=== PATIENT | male | born 1935 | race Caucasian/White ===

== ENCOUNTER 2017-07-20 10:18 | Outpatient (CLI) | payer BC, SELFPAY ==
[2017-07-20] VITALS (8 sets, daily range): BP systolic 130–160; BP diastolic 37–99; PULSE 55–64; RESP 8–16; TEMP 36.2; O2SAT 96–100
--- NOTE | 2017-07-20 10:19 | DI.RAD.S_ITS ---
PROCEDURE: PAIN L INTERLAMINAR/CAUDAL INJ INDICATIONS: 82 year-old male with spinal stenosis and bilateral lower extremity symptoms. FINDINGS: Fluoroscopic spot filming was performed to verify placement of spinal needles at the posterior L4-L5 level(s), as labeled on the films. Appropriate location(s) of the needle tip(s) was confirmed by injection of iodinated contrast. IMPRESSION: Fluoroscopic guidance for L4-L5 epidural steroid injection. Dictated by: Arias Bloom M.D. on 07/20/2017 at 15:09 Approved by: Arias Bloom M.D. on 07/20/2017 at 15:09
--- NOTE | 2017-07-20 11:27 | P.PCN_ITS ---
Procedures Date/Time Date of procedure: 07/20/17 Time of procedure: 12:05 General Procedure description: PROVIDER: Jason Lange DO Operative Note PREOP DIAGNOSIS 1. HNP WITH RADICULAR FEATURES, 2. MULTILEVEL CENTRAL STENOSIS, POST OP DIAGNOSIS 1. HNP WITH RADICULAR FEATURES, 2. MULTILEVEL CENTRAL STENOSIS PROCEDURES 1. FLUORSCOPICALLY GUIDED CONTRAST CONTROLLED INTERLAMINAR EPIDURAL STEROID INJECTION -L4/5 PHYSICIAN: Jason Lange DO INDICATIONs: Joesph is referred by Dr. Lockett for treatment of Bilateral Foraminal Stenosis R> L LE symptoms. FINDINGS Multilevel Central Spinal Stenosis with Nerve Root Compression DESCRIPTION OF PROCEDURE Fluoroscopically guided, contrast-controlled L4/5 translaminar epidural steroid injection. Following denial of allergy and review of potential side effects and complications, including, but not necessarily limited to, infection, allergic reaction, local tissue breakdown, temporary as well as permanent nerve injury, paralysis, stroke and possible , the patient indicated that the patient understood and agreed to proceed. An informed consent document was signed by the patient, witnessed by a nurse, and placed in the patient's chart. Additionally, other treatment options including modalities, medications, and physical therapy were reviewed with the patient. Per the patient request, IV conscious sedation was administered via 3mg of Versed to patient comfort. The patient's vital signs were monitored throughout the procedure by both the nurse and the physician without significant fluctuation. The patient remained conversant throughout the procedure. In the prone position, following sterile prep and drape of the lumbar region, the L4/5 translaminar space was identified fluoroscopically. The skin was anesthetized via a 25-gauge, 1.5-inch needle with 1% lidocaine solution. At this point, a 22-gauge short bevel spinal needle was atraumatically introduced and advanced under fluoroscopic guidance into the region of the L4/5 translaminar space. Depth was confirmed on lateral view. Radiological data, including multiple fluoroscopic views of the lumbar spine, reveal a spinal needle at the L4/5 translaminar space. Lateral views then show placement of the needle in the epidural space. Subsequent views show contrast material flowing superiorly and inferiorly in the epidural space. No vascular or intrathecal uptake is observed. At this point, using loss of resistance technique with saline and air, the epidural space was entered. This was confirmed following negative aspiration with injection of approximately 1.5 cc of Isovue 200, showing excellent epidural flow without vascular or intrathecal uptake. At this point, 1 cc of 1 % lidocaine solution combined with 4c or 1 mg of dexamethasone and 18 betamethasone was injected without incident. The patient was then transferred to the recovery area where they were observed for an appropriate period of time after the injection. The patient reported a VAS score of 6 prior to the procedure and a post-procedure VAS of 0. Total Fluoroscopy Time: 11.8 seconds Total Conscious Sedation Time: 24min POST OP INSTRUCTIONS The patient was provided a Pain Log to continue to record their response to the target-specific procedure prior to follow-up visit with their referring physician. Additionally, specific post-injection care instructions and a contact number to our office were provided if concerns arise regarding possible complications associated with the procedure are suspected. Jason Lange DO Complications: none
[2017-07-20] MEDS: MIDAZOLAM 5 MG/5 ML VIAL IV (11:40)
[2017-07-20] MEDS: IOPAMIDOL 15 ML VIAL 3 ML INJ (11:40)
[2017-07-20] MEDS: BETAMETHASONE 30 MG/5 ML MDV 6 MG INJ (11:40)
[2017-07-20] MEDS: BETAMETHASONE 30 MG/5 ML MDV 12 MG INJ (11:40)
[2017-07-20] MEDS: BUPIVACAINE 0.25% (PF) 30 ML VIAL INJ (11:40)
== END 2017-07-20 12:44 ==
LOC: RAD 10:18
PROVIDERS: Visit Provider Physical Medicine & Rehabilitation
DX: M48.061 Spinal stenosis, lumbar region without neurogenic claudication (principal); M51.16 Intervertebral disc disorders with radiculopathy, lumbar region
CPT/HCPCS: 62323; 99152; J0702; J2250

== ENCOUNTER → 2017-09-26 08:25 | Outpatient (CLI) | payer BC, SELFPAY ==
--- NOTE | 2017-09-26 08:26 | DI.RAD.S_ITS ---
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 COMPARISON: None. FINDINGS: Bones: Right knee arthroplasty present with hardware in expected position. No periprosthetic fracture. No evidence of loosening/infection. Soft tissues: Small joint effusion. No suspicious soft tissue calcifications. IMPRESSION: 1. Expected position of right knee arthroplasty. Dictated by: Pepe Sandy [facility] Interpreted: Jimi Briceno MD on 09/26/2017 at 9:39 Approved by: Jimi Briceno M.D. on 09/26/2017 at 13:21
== END ==
PROVIDERS: PCP Internal Medicine; Visit Provider Physical Medicine & Rehabilitation
DX: G58.8 Other specified mononeuropathies (principal); Z96.651 Presence of right artificial knee joint
CPT/HCPCS: 73562

== ENCOUNTER 2018-01-24 08:07 | Outpatient (CLI) | payer BC, SELFPAY ==
--- NOTE | 2018-01-24 08:08 | DI.RAD.S_ITS ---
PROCEDURE: PAIN PERIPHERAL NRV BLK OTHER INDICATIONS: ARTIFICIAL KNEE PAIN FINDINGS: Fluoroscopic spot filming was performed to verify placement of spinal needles for genicular nerve block, as labeled on the films. Appropriate location(s) of the needle tip(s) was confirmed by injection of iodinated contrast. Dictated by: Lenin Hines M.D. on 01/24/2018 at 16:31 Approved by: Lenin Hines M.D. on 01/24/2018 at 16:32
[2018-01-24 08:28] VITALS: BP 118/73; PULSE 65; RESP 18; O2SAT 96
[2018-01-24 09:10] VITALS: BP 119/80; PULSE 66; RESP 16; O2SAT 95
[2018-01-24 09:15] VITALS: BP 128/76; BP 132/95; PULSE 62; PULSE 64; RESP 16; O2SAT 99
[2018-01-24] MEDS: MIDAZOLAM 5 MG/5 ML VIAL IV (09:15)
[2018-01-24 09:20] VITALS: BP 103/64; PULSE 68; RESP 16; O2SAT 99
[2018-01-24 09:40] VITALS: BP 112/89; PULSE 67; RESP 16; O2SAT 95
--- NOTE | 2018-01-24 09:41 | P.PCN_ITS ---
Procedures Date/Time Date of procedure: 01/24/18 Time of procedure: 09:40 General Procedure description: POST OP DIAGNOSIS 1. Chronic knee pain PROCEDURES 1. Geniculate nerve blocks including superior lateral and medial as well as inferior medial nerve blocks PHYSICIAN: Jason Lange, INDICATIONS Joesph is referred by Dr. Lockett for treatment of chronic knee pain. DESCRIPTION OF PROCEDURE Fluoroscopically guided, contrast-controlled superior lateral, superior medial and inferior medial geniculate blocks with 2cc of 0.5% Marcaine. Following denial of allergy and review of potential side effects and complications, including, but not necessarily limited to, infection, allergic reaction, local tissue breakdown, nerve injury, paralysis, stroke and possible , the patient indicated that the patient understood and agreed to proceed. An informed consent document was signed by the patient, witnessed by a nurse, and placed in the patient's chart. After review of previous anaesthesic history and IV conscious sedation the patient was deemed safe to proceed with todays procedure with IV conscious sedation as ASA class II designation. Safety time-out was performed to confirm patient ID, procedure to be performed and site of procedure. IV sedation was accomplished with a combination of 3mg of Versed was administered by the RN after DO order, titrated to patient comfort during the course of the procedure while the patient remained responsive to all verbal commands A time-out was taken to identify the correct patient, procedure and side prior to starting the procedure. With the patient lying in the supine position, the patient was prepped and draped in usual sterile fashion using Betadine scrub and a fenestrated drape. Local anesthetic was given by raising a skin wheal and going down to the hub of a 25 gauge 1/2 inch needle. In an AP fluoroscopic view , a 20 gauge needle with was introduced through the anesthetic skin and down to the junction of the femoral diaphysis and the medial femoral condyle, then another needle to the femoral diaphysis on the lateral femoral condyle and the 3rd medial to the tibial diaphysis and the medial tibial condyle. Place of the of all 3 needles was confirmed with lateral fluoroscopic view. After negative aspirate to make sure there was no intravascular placement, trace contrast was infiltrated to confirm neurogram as well as lack of vascular uptake. After placement, 2 mL of 0.5% Marcaine was injected slowly and each of the 3 sites without incident. The needle was withdrawn and sites cleaned and dressed. The patient tolerated the procedure well without signs or symptoms of complications. The patient tolerated the procedure well without signs or symptoms of complications prior to transfer to the recovery area continued monitoring without incident. Post-procedure, the patient was monitored initiating provocative activities to measure the amount of relief from her chronic knee pain. The patient reported a VAS of 7 prior to the procedure and a post-procedure VAS of 1. Total Fluoroscopy Time: 19.0 seconds Total Conscious Sedation Time: 24min POST OP INSTRUCTIONS The patient was provided with a Pain Log to complete over the next several hours and subsequent days prior to the patient's follow up with the ordering physician. If the patient has auto bench mechanic relief to the solution applied, then they may be a candidate for geniculate nerve radiofrequency ablation. The patient is aware, was provided, once again, with a Pain Log and will follow up with the referring physician for review and clinical correlation Complications: none
[2018-01-24 09:47] VITALS: BP 118/76; PULSE 88; RESP 16; O2SAT 98
[2018-01-24] MEDS: IOPAMIDOL 15 ML VIAL 3 ML INJ (09:48)
[2018-01-24] MEDS: LIDOCAINE 1% 20 ML INJ 10 ML INJ (09:48)
[2018-01-24] MEDS: DEXAMETHASONE 10 MG/ML VIAL 20 MG INJ (09:48)
[2018-01-24] MEDS: BUPIVACAINE 0.5% (PF) VIAL 2 ML INJ (09:49)
--- NOTE | 2018-01-24 12:27 | PC.NURSE ---
procedure finished at 09, pt assisted off the table and into wheelchair with one person stand by assist. pt tolerated procedure well. Taken to pre procedure room via W/C where care was resumed by Keiry SHEPHERD.
--- NOTE | 2018-01-25 16:38 | PC.NURSE ---
Follow up call made and pt reports most of his pain is gone, he's been walking around a lot but he's happy with the results. pt also had some insomnia but took melatonin that helped.
== END 2018-01-24 10:00 | disposition home or self-care (01) ==
LOC: RAD 08:08
PROVIDERS: PCP Internal Medicine; Visit Provider Physical Medicine & Rehabilitation
DX: M25.561 Pain in right knee (principal); B02.21 Postherpetic geniculate ganglionitis; G89.29 Other chronic pain; Z96.651 Presence of right artificial knee joint
CPT/HCPCS: 64450; 99152; J1100; J2250

== ENCOUNTER → 2018-01-28 08:01 | Outpatient (CLI) | payer BC, SELFPAY ==
[2018-01-28 09:46] LABS: Add Manual Diff / Slide Review NO; Basophils Percent Auto 0.9 % (0-2); Eosinophils Percent Auto 5.5 % (2-4); Hematocrit 37.7 % (41-53); Hemoglobin 12.4 g/dL (13.5-17.5); Lymphocytes Percent Auto 29.6 % (25-40); Mean Corpuscular HGB Conc 32.9 % (30-36); Mean Corpuscular Hemoglobin 30.9 PG (26-34); Mean Corpuscular Volume 93.7 fL (80-100); Monocytes Percent Auto 9.6 % (3-14); Neutrophils Absolute Auto 2700 /uL (1500-7000); Neutrophils Percent Auto 54.4 % (50-75); Platelet Count 243 X10^3/uL (150-400); Red Blood Cell Count 4.02 X10^6/uL (4.5-5.9); White Blood Cell Count 4.9 X10^3/uL (4.5-11.0)
[2018-01-28 09:58] LABS: Alanine Aminotransferase 29 IU/L (21-72); Albumin Globulin Ratio 1.5 (1.0-2.8); Alkaline Phosphatase 55 U/L (38-126); Aspartate Aminotransferase 22 IU/L (17-59); BUN Creatinine Ratio 25.6 (6-22); Bilirubin Total 0.5 mg/dL (0.2-1.3); Blood Urea Nitrogen 23 mg/dL (9-20); Calcium 9.5 mg/dL (8.4-10.2); Carbon Dioxide 28 mmol/L (22-32); Chloride 104 mmol/L (98-107); Cholesterol 196 mg/dL (140-199); Estimated Glomerular Filt Rate > 60.0 mL/min (>60); Globulin 2.7 g/dL (1.7-4.1); Glucose 91 mg/dL (80-110); HDL Cholesterol 77 mg/dL (40-60); HEMOLYSIS < 15 (0-50); LDL Cholesterol Calculated 95 mg/dL (<100); Potassium 4.2 mmol/L (3.4-5.1); Sodium 141 mmol/L (137-145); Total Protein 6.7 g/dL (6.3-8.2); Triglycerides 121 mg/dL (35-150)
[2018-01-28 10:28] LABS: Thyroid Stimulating Hormone 1.22 uIU/mL (0.47-4.68)
== END ==
PROVIDERS: PCP Internal Medicine; Visit Provider Internal Medicine
DX: D64.9 Anemia, unspecified (principal); C67.9 Malignant neoplasm of bladder, unspecified; N40.0 Benign prostatic hyperplasia without lower urinary tract symptoms; G62.9 Polyneuropathy, unspecified; I10 Essential (primary) hypertension
CPT/HCPCS: 36415; 80053; 80061; 84443; 85025

== ENCOUNTER → 2018-02-09 15:39 | Outpatient (CLI) | payer BC, SELFPAY ==
--- NOTE | 2018-02-09 15:41 | DI.RAD.S_ITS ---
PROCEDURE: XR KNEE LT 3V INDICATIONS: left knee pain TECHNIQUE: 3 views of the knee were acquired. COMPARISON: [facility], CR, XR KNEE RT 3V, 09/26/2017, 8:14. FINDINGS: Bones: No fractures or dislocations but there is moderately severe to severe medial compartment degenerative knee joint osteoarthritis with near [id number]-bn-wigh articulation. At the patellofemoral joint there is a moderate degree of medial facet patellofemoral joint osteoarthritis.. No suspicious bony lesions. Soft tissues: No joint effusion. No suspicious soft tissue calcifications. IMPRESSION: Moderately severe to severe medial compartment knee joint osteoarthritis, without joint effusion or intra-articular loose body found. Dictated by: Jimi Briceno M.D. on 02/09/2018 at 17:21 Approved by: Jimi Briceno M.D. on 02/09/2018 at 17:22
== END ==
PROVIDERS: PCP Internal Medicine; Visit Provider Physical Medicine & Rehabilitation
DX: M25.562 Pain in left knee (principal); M17.12 Unilateral primary osteoarthritis, left knee
CPT/HCPCS: 73562

== ENCOUNTER 2018-08-31 14:04 | Outpatient (CLI) | payer BC, SELFPAY ==
--- NOTE | 2018-08-31 14:05 | DI.RAD.S_ITS ---
PROCEDURE: PAIN L/S TRANSFORAMINAL INJECT INDICATIONS: SPINAL STENOSIS FINDINGS: Fluoroscopic spot filming was performed to verify placement of spinal needles at the L4-L5 level(s), as labeled on the films. Appropriate location(s) of the needle tip(s) was confirmed by injection of iodinated contrast. IMPRESSION: Fluoroscopy for pain management. Dictated by: Washington Cabral M.D. on 08/31/2018 at 17:38 Approved by: Washington Cabral M.D. on 08/31/2018 at 17:38
[2018-08-31 14:16] VITALS: BP 130/75; PULSE 83; RESP 16; TEMP 36.7; O2SAT 96
[2018-08-31 15:13] VITALS: BP 127/77; PULSE 81; RESP 16; O2SAT 100
[2018-08-31] MEDS: fentaNYL 100 MCG/2 ML INJ 50 MCG IV (15:15)
[2018-08-31] MEDS: BUPIVACAINE 0.25% (PF) VIAL 2 ML INJ (15:18)
[2018-08-31] MEDS: IOPAMIDOL 15 ML VIAL 3 ML INJ (15:18)
[2018-08-31] MEDS: BETAMETHASONE 30 MG/5 ML MDV 12 MG INJ (15:19)
[2018-08-31] MEDS: MIDAZOLAM 5 MG/5 ML VIAL IV (15:19)
[2018-08-31 15:20] VITALS: BP 124/86; PULSE 55; RESP 16; O2SAT 96
--- NOTE | 2018-08-31 15:23 | CM.MNRNOTE ---
Pt tolerated procedure well. Right leg a little numb but able to get off table with 2 person minimal assist. Transferred pt via wheelchair to pre procedure room for continued monitoring with Keiry SHEPHERD.
[2018-08-31 15:34] VITALS: BP 129/63; PULSE 59; RESP 16; O2SAT 97
--- NOTE | 2018-08-31 15:34 | P.PCN_ITS ---
Procedures Date/Time Date of procedure: 08/31/18 Time of procedure: 15:33 General Procedure description: PREOP DIAGNOSIS 1. FORMAINAL STENOSIS WITH LE SYMPTOMS POST OP DIAGNOSIS 1. FORMAINAL STENOSIS WITH LE SYMPTOMS PROCEDURES 1. FLUOROSCOPICALLY GUIDED CONTRAST CONTROLLED TRANSFORAMINAL EPIDURAL STEROID INJECTION - RIGHT L4/5 TFESI PHYSICIAN: Jason Lange DO INDICATIONS: Joesph is referred by Dr. Sánchez for treatment of Foraminal Stenosis with Right LE Symptoms FINDINGS Foraminal Nerve Root Compression secondary to disc disease and facet hypertrophy DESCRIPTION OF PROCEDURE: Following review of allergy and review of potential side effects and complications, including, but not necessarily limited to, infection, allergic reaction, local tissue breakdown, stroke, temporary or permanent nerve injury, paralysis, and possible , the patient indicated that the patient understood and agreed to proceed. An informed consent document was signed by the patient, witnessed by a nurse, and placed in the patient's chart. Additionally, other treatment options including medications, modalities, and physical therapy were reviewed with the patient. After review of previous anaesthesic history and IV conscious sedation the patient was deemed safe to proceed with todays procedure with IV conscious sedation as ASA class II designation. Safety time-out was performed to confirm patient ID, procedure to be performed and site of procedure. IV sedation was accomplished with a combination of 2mg of Versed and 50mcg of Fentanyl was administered by the RN after DO order, titrated to patient comfort during the course of the procedure while the patient remained responsive to all verbal commands In the prone position following sterile prep and drape of the lumbar region, the Right L4/5 posterior neuroforamen was identified fluoroscopically. The skin was anesthetized via a 25-gauge 1.5-inch needle with 1% lidocaine solution. At this point, a 25-gauge 3.5-inch spinal needle was atraumatically introduced and advan louis under fluoroscopic guidance through the posterior Right L4/5 neuroforamen to approximately the anterior aspect of the canal. Depth was confirmed on lateral view. Following negative aspiration, injection of approximately 1.5 cc of Isovue 200 under live fluoroscopy in the AP view confirmed excellent flow along the nerve root, into the epidural space without vascular or intrathecal uptake observed Radiological data, including multiple fluoroscopic views of the lumbosacral spine, reveal a spinal needle at the right L4/5 posterior neuroforamen. Subsequent views show flow of contrast material flowing superiorly and inferiorly along the nerve root confirming epidural flow. Subsequently, a test dose of 1.5 cc of 1% lidocaine solution was administered and patient was observed for two minutes for signs or symptoms of complications, including abdominal pain, shortness of breath, bilateral upper or lower extremity weakness, nausea and vomiting, prior to steroid injection. At this point, a total of 2cc or 20mg of dexamethasone was injected without incident. The procedure tolerated the procedure well without signs or symptoms of complications prior to transfer to the recovery area continued monitoring without incident.The patient was then transferred to the recovery area where they were observed for an appropriate time after the injection. The patient reported a VAS score of 7 prior to the procedure and a post- procedure VAS of 0. Total Fluoroscopy Time: 20.9 seconds Total Conscious Sedation Time: 24min POST OP INSTRUCTIONS The patient was provided a Pain Log to continue to record their response to the target-specific procedure prior to follow-up visit with their referring physician. Additionally, specific post-injection care instructions and a contact number to our office were provided if concerns arise regarding possible complications associated with the procedure are suspected. Jason Lange DO Complications: none
[2018-08-31 15:40] VITALS: BP 100/28; PULSE 60; RESP 16; O2SAT 97
[2018-08-31 15:45] VITALS: BP 125/69; PULSE 63; RESP 16; O2SAT 96
== END 2018-08-31 16:15 | disposition home or self-care (01) ==
LOC: RAD 14:04
PROVIDERS: PCP Family Medicine; Visit Provider Physical Medicine & Rehabilitation
DX: M48.061 Spinal stenosis, lumbar region without neurogenic claudication (principal); M48.00 Spinal stenosis, site unspecified
CPT/HCPCS: 64483; 99152; J0702; J2250; J3010

== ENCOUNTER 2018-11-30 08:55 | Outpatient (CLI) | payer BC, SELFPAY ==
[2018-11-30] VITALS (7 sets, daily range): BP systolic 126–176; BP diastolic 67–87; PULSE 54–69; RESP 16–26; TEMP 36.4; O2SAT 96–98
--- NOTE | 2018-11-30 08:58 | DI.RAD.S_ITS ---
PROCEDURE: PAIN L INTERLAMINAR/CAUDAL INJ INDICATIONS: LUMBAR SPINAL STENOSIS FINDINGS: Fluoroscopic spot filming was performed to verify placement of spinal needles at the L4-L5 level(s), as labeled on the films. Appropriate location(s) of the needle tip(s) was confirmed by injection of iodinated contrast. Dictated by: Lenin Hines M.D. on 11/30/2018 at 11:04 Approved by: Lenin Hines M.D. on 11/30/2018 at 11:04
[2018-11-30] MEDS: MIDAZOLAM 5 MG/5 ML VIAL IV (09:51)
[2018-11-30] MEDS: fentaNYL 100 MCG/2 ML INJ 50 MCG IV (09:51)
[2018-11-30] MEDS: DEXAMETHASONE 10 MG/ML VIAL 20 MG INJ (10:00)
[2018-11-30] MEDS: IOPAMIDOL 15 ML VIAL 3 ML INJ (10:00)
[2018-11-30] MEDS: BETAMETHASONE 30 MG/5 ML MDV 6 MG INJ (10:00)
[2018-11-30] MEDS: BUPIVACAINE 0.25% (PF) VIAL 2 ML INJ (10:00)
--- NOTE | 2018-11-30 13:20 | PC.NURSE ---
Late entry: Post procedure note--time out at 0949. Medicated per provider orders. Patient tolerated procedure well. VSS, O2 Sat WNL on 2L/HEAD LINEMAN throughout. pateint able to sit up from table and transfer to w/c with stand by assist. Lower extremtities weak. Denied numbness or tingling. pain level 7/10. Transported for post procedure monitoring. Handoff report given to Josias Landry at 1008.
--- NOTE | 2018-12-12 12:46 | P.PCN_ITS ---
Procedures Date/Time Date of procedure: 11/30/18 Time of procedure: 12:46 General Procedure description: PROVIDER: Jason Lange DO Operative Note PREOP DIAGNOSIS 1. HNP WITH RADICULAR FEATURES, 2. MULTILEVEL CENTRAL STENOSIS, POST OP DIAGNOSIS 1. HNP WITH RADICULAR FEATURES, 2. MULTILEVEL CENTRAL STENOSIS PROCEDURES 1. FLUORSCOPICALLY GUIDED CONTRAST CONTROLLED INTERLAMINAR EPIDURAL STEROID INJECTION -L4/5 PHYSICIAN: Jason Lange DO INDICATIONs: Joesph is referred by Dr. 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 FINDINGS Multilevel Central Spinal Stenosis with Nerve Root Compression DESCRIPTION OF PROCEDURE Fluoroscopically guided, contrast-controlled L4/5 translaminar epidural steroid injection. Following review of allergy and review of potential side effects and complications, including, but not necessarily limited to, infection, allergic reaction, local tissue breakdown, temporary as well as permanent nerve injury, paralysis, stroke and possible , the patient indicated that the patient understood and agreed to proceed. An informed consent document was signed by the patient, witnessed by a nurse, and placed in the patient's chart. Additionally, other treatment options including modalities, medications, and physical therapy were reviewed with the patient. After review of previous anaesthesic history and IV conscious sedation the patient was deemed safe to proceed with todays procedure with IV conscious sedation as ASA class II designation. Safety time-out was performed to confirm patient ID, procedure to be performed and site of procedure. IV sedation was accomplished with a combination of 2mg of Versed and 50mcg of Fentanyl was administered by the RN after DO order, titrated to patient comfort during the course of the procedure while the patient remained responsive to all verbal commands In the prone position, following sterile prep and drape of the lumbar region, the L4/5 translaminar space was identified fluoroscopically. The skin was anesthetized via a 25-gauge, 1.5-inch needle with 1% lidocaine solution. At this point, a 22-gauge short bevel spinal needle was atraumatically introduced and advanced under fluoroscopic guidance into the region of the L4/5 translaminar space. Depth was confirmed on lateral view. Radiological data, including multiple fluoroscopic views of the lumbar spine, reveal a spinal needle at the L4/5 translaminar space. Lateral views then show placement of the needle in the epidural space. Subsequent views show contrast material flowing superiorly and inferiorly in the epidural space. No vascular or intrathecal uptake is observed. At this point, using loss of resistance technique with saline and air, the epidural space was entered. This was confirmed following negative aspiration with injection of approximately 1.5 cc of Isovue 200, showing excellent epidural flow without vascular or intrathecal uptake. At this point, 1 cc of 1% lidocaine solution combined with 3cc or 20mg of dexamethasone and 6mg betamethasone was injected without incident. The patient tolerated the procedure well without signs or symptoms of complications prior to transfer to the recovery area continued monitoring without incident. The patient was then transferred to the recovery area where they were observed for an appropriate period of time after the injection. The patient reported a VAS score of 6 prior to the procedure and a post- procedure VAS of 0. Total Fluoroscopy Time: 11.8 seconds, 8.99 mGy Total Conscious Sedation Time: 24min POST OP INSTRUCTIONS The patient was provided a Pain Log to continue to record their response to the target-specific procedure prior to follow-up visit with their referring physician. Additionally, specific post-injection care instructions and a contact number to our office were provided if concerns arise regarding possible complications associated with the procedure are suspected. Jason Lange, Complications: none
== END 2018-11-30 10:48 | disposition home or self-care (01) ==
LOC: RAD 08:55
PROVIDERS: PCP Family Medicine; Visit Provider Physical Medicine & Rehabilitation
DX: M51.16 Intervertebral disc disorders with radiculopathy, lumbar region (principal); M48.062 Spinal stenosis, lumbar region with neurogenic claudication
CPT/HCPCS: 62323; 99152; J0702; J1100; J2250; J3010

== ENCOUNTER → 2019-09-11 11:36 | Outpatient (CLI) | payer BC, SELFPAY ==
--- NOTE | 2019-09-11 | DI.CT.S_ITS ---
PROCEDURE: CT KIDNEY URETER BLADDER (KUB) INDICATIONS: ABD PAIN TECHNIQUE: Noncontrast 5 mm thick sections acquired from the diaphragms to the symphysis. 5 mm thick coronal and sagittal reformats were then performed. For radiation dose reduction, the following was used: automated exposure control, adjustment of mA and/or kV according to patient size. COMPARISON: [facility], CT, KIDNEY/ URETER/BLADDER, 11/01/2012, 12:37. FINDINGS: Image quality: Excellent. Lung bases: Lung bases are clear. Heart size is normal. Urinary system: Both kidneys are fairly normal size and demonstrate diffusely irregular, strandy margins suggestive of senescent changes. There are several coarse calcifications in the intrarenal collecting system, the largest on the right is in the lower pole and measures 7 x 8 mm. There are at least three other nonobstructing right renal calcifications. There are four on the left. The largest measures 3 mm. There is no hydronephrosis. No hydroureter or ureteral calcifications. The prostate gland is markedly enlarged containing several coarse calcifications. The urinary bladder is decompressed. The wall is diffusely thickened. No definite bladder calcifications. Other solid organs: Liver is normal in size. There are a few hypodensities in the liver, mainly in the left lobe, and the largest measuring about 4.2 cm. Gallbladder is surgically absent . Pancreas is normal in contours. Spleen is normal in size. No adrenal nodules. Peritoneum and bowel: There are changes of a partial left hemicolectomy with a smooth, mild narrowing at the anastomosis. Proximal to this there is increased quantity of solid stool present. Small bowel is decompressed. No inflammatory changes. Occasional colonic diverticula. Unenhanced bowel loops demonstrate normal wall thickness and caliber. No free fluid or air. Nodes and vessels: No retroperitoneal or mesenteric adenopathy by size criteria. Aorta and inferior vena cava are normal in caliber. Abdominal wall: No ventral hernias. Pelvis: No free pelvic fluid. No inguinal hernias or adenopathy. Bones: No suspicious bony lesions. Severe degeneration of the right hip. Multilevel disc and facet joint degeneration. No vertebral body compression fractures. IMPRESSION: 1. Numerous nonobstructing bilateral intrarenal calcifications. 2. No evidence of obstructive uropathy. 3. Mild obstipation proximal to a left colonic anastomosis. 4. Market prostatomegaly. 5. Diffuse urinary bladder wall thickening is most likely secondary to chronic overdistention, although there may be a cystitis. Correlate clinically. Dictated by: Kathy Judd M.D. on 09/11/2019 at 13:27 Approved by: Kathy Judd M.D. on 09/11/2019 at 13:35
== END ==
PROVIDERS: PCP Family Medicine; Referring Provider Urology; Visit Provider Urology
DX: R10.9 Unspecified abdominal pain (principal); N20.0 Calculus of kidney; N40.0 Benign prostatic hyperplasia without lower urinary tract symptoms; K57.90 Diverticulosis of intestine, part unspecified, without perforation or abscess without bleeding; K59.00 Constipation, unspecified; Z90.49 Acquired absence of other specified parts of digestive tract; Z98.0 Intestinal bypass and anastomosis status
CPT/HCPCS: 74176

== ENCOUNTER → 2019-12-17 11:22 | Outpatient (CLI) | payer BC, SELFPAY ==
[2019-12-17 14:02] LABS: COVID19 -Nasal RAPID Negative (Negative)
== END ==
PROVIDERS: PCP Family Medicine; Visit Provider Physician Assistant
DX: Z11.59 Encounter for screening for other viral diseases (principal)
CPT/HCPCS: 87635

== ENCOUNTER 2019-12-18 13:00 | Outpatient (CLI) | payer BC, SELFPAY ==
[2019-12-18] VITALS (10 sets, daily range): BP systolic 104–154; BP diastolic 64–91; PULSE 58–82; RESP 10–27; TEMP 36.1; O2SAT 92–100
--- NOTE | 2019-12-18 13:44 | DI.RAD.S_ITS ---
PROCEDURE: PAIN L INTERLAMINAR/CAUDAL INJ INDICATIONS: SPONDYLOSIS COMPARISON: [facility], XA, PAIN L INTERLAMINAR/CAUDAL INJ, 11/30/2018, 9:57. FINDINGS: Fluoroscopic spot filming was performed to verify placement of a spinal needle at the L4-L5 level, as labeled on the films. Appropriate location of the needle tip was confirmed by injection of iodinated contrast. IMPRESSION: Intraprocedural examination within normal limits. Dictated by: Shivam Sawyer M.D. on 12/18/2019 at 13:54 Approved by: Shivam Sawyer M.D. on 12/18/2019 at 13:54
[2019-12-18] MEDS: fentaNYL 100 MCG/2 ML INJ 50 MCG IV (13:55)
[2019-12-18] MEDS: MIDAZOLAM 5 MG/5 ML VIAL IV (13:55)
[2019-12-18] MEDS: BUPIVACAINE 0.25% (PF) VIAL 2 ML INJ (13:57)
[2019-12-18] MEDS: IOPAMIDOL 15 ML VIAL 3 ML INJ (13:58)
[2019-12-18] MEDS: BETAMETHASONE 30 MG/5 ML MDV 6 MG INJ (13:58)
[2019-12-18] MEDS: DEXAMETHASONE 10 MG/ML VIAL 20 MG INJ (13:58)
--- NOTE | 2019-12-18 14:07 | P.PCN_ITS ---
Date/Time/Diagnoses Date of procedure: 12/18/19 Time of procedure: 14:07 Pre-procedure diagnosis: 1. HNP WITH RADICULAR FEATURES, 2. MULTILEVEL CENTRAL STENOSIS, Post-procedure diagnosis: same Procedure Notes Procedure: 1. FLUOROSCOPICALLY GUIDED CONTRAST CONTROLLED INTERLAMINAR EPIDURAL STEROID INJECTION -L4/5 Indications: Joesph is referred by Dr. 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 Physician: Jason Lange Total Fluoroscopy time (seconds): 6 Total sedation minutes: 9 Complications: none Procedure in detail & Post-procedure care: FINDINGS Multilevel Central Spinal Stenosis with Nerve Root Compression DESCRIPTION OF PROCEDURE Fluoroscopically guided, contrast-controlled L4/5 translaminar epidural steroid injection. Following review of allergy and review of potential side effects and complications, including, but not necessarily limited to, infection, allergic reaction, local tissue breakdown, temporary as well as permanent nerve injury, paralysis, stroke and possible , the patient indicated that the patient understood and agreed to proceed. An informed consent document was signed by the patient, witnessed by a nurse, and placed in the patient's chart. Additionally, other treatment options including modalities, medications, and physical therapy were reviewed with the patient. After review of previous anaesthesic history and IV conscious sedation the patient was deemed safe to proceed with today?s procedure with IV conscious sedation as ASA class II designation. Safety time-out was performed to confirm patient ID, procedure to be performed and site of procedure. IV sedation was accomplished with a combination of 2mg of Versed and 50mcg of Fentanyl was administered by the RN after DO order, titrated to patient comfort during the course of the procedure while the patient remained responsive to all verbal commands In the prone position, following sterile prep and drape of the lumbar region, the L4/5 translaminar space was identified fluoroscopically. The skin was anesthetized via a 25-gauge, 1.5inch needle with 1% lidocaine solution. At this point, a 22-gauge short bevel spinal needle was atraumatically introduced and advanced under fluoroscopic guidance into the region of the L4/5 translaminar space. Depth was confirmed on lateral view. Radiological data, including multiple fluoroscopic views of the lumbar spine, reveal a spinal needle at the L4/5 translaminar space. Lateral views then show placement of the needle in the epidural space. Subsequent views show contrast material flowing superiorly and inferiorly in the epidural space. No vascular or intrathecal uptake is observed. At this point, using loss of resistance technique with saline and air, the epidural space was entered. This was confirmed following negative aspiration with injection of approximately 1.5cc of Isovue 200, showing excellent epidural flow without vascular or intrathecal uptake. At this point, 1cc of 1% lidocaine solution combined with 3cc or 20mg of dexamethasone and 6mg betamethasone was injected without incident. The patient tolerated the procedure well without signs or symptoms of complic ations prior to transfer to the recovery area continued monitoring without incident. The patient was then transferred to the recovery area where they were observed for an appropriate period of time after the injection. The patient reported a VAS score of 6 prior to the procedure and a post- procedure VAS of 0. POST OP INSTRUCTIONS The patient was provided a Pain Log to continue to record their response to the target-specific procedure prior to follow-up visit with their referring physician. Additionally, specific post-injection care instructions and a contact number to our office were provided if concerns arise regarding possible complications associated with the procedure are suspected.
== END 2019-12-18 14:30 | disposition home or self-care (01) ==
PROVIDERS: PCP Family Medicine; Referring Provider Physical Medicine & Rehabilitation; Visit Provider Physical Medicine & Rehabilitation
DX: M51.16 Intervertebral disc disorders with radiculopathy, lumbar region (principal); M48.061 Spinal stenosis, lumbar region without neurogenic claudication
CPT/HCPCS: 62323; J0702; J1100; J2250; J3010

== ENCOUNTER → 2020-01-26 09:53 | Outpatient (CLI) | payer BC, SELFPAY ==
--- NOTE | 2020-01-26 09:54 | DI.RAD.S_ITS ---
PROCEDURE: XR KNEE LT 3V INDICATIONS: Left knee pain TECHNIQUE: 3 views of the knee were acquired. COMPARISON: [facility], , XR KNEE LT 3V, 02/09/2018, 15:49. FINDINGS: Bones: There are tricompartmental degenerative changes with tricompartmental osteophytes. The medial joint space is narrowed with medial osteophytes. There is subchondral sclerosis of the medial joint space. Soft tissues: No joint effusion. No suspicious soft tissue calcifications. IMPRESSION: Tricompartmental degenerative changes consistent with osteoarthritis. Dictated by: Bairon Beal M.D. on 01/26/2020 at 17:08 Approved by: Bairon Beal M.D. on 01/26/2020 at 17:10
--- NOTE | 2020-01-26 09:54 | DI.RAD.S_ITS ---
PROCEDURE: XR LUMBAR SPINE MIN 4V COMPARISON: None. INDICATIONS: Back pain FINDINGS: AP, lateral, coned-down, and oblique views of the lumbar spine were performed. There are multilevel degenerative changes with osteophytes at multiple levels. No vertebral body height loss consistent with compression fracture. There is disc space narrowing at L1-2, L2-3, L4-5, and L5-S1. Disc space narrowing is most severe at L2-3 and L5-S1. These levels demonstrate end-plate sclerosis. There is facet arthrosis in the lower lumbar spine. Both hips have degenerative changes, more severe on the right with severe loss of the joint space on the right. Pelvic phleboliths are noted. IMPRESSION: 1. Multilevel degenerative changes with no acute compression fracture. 2. Multilevel disc space narrowing consistent with disc disease as above. 3. Facet arthropathy in the lower lumbar spine. 4. Degenerative changes of both hips, more severe on the right consistent with osteoarthritis. Dictated by: Bairon Beal M.D. on 01/26/2020 at 17:10 Approved by: Bairon Beal M.D. on 01/26/2020 at 17:13
== END ==
PROVIDERS: PCP Family Medicine; Referring Provider Physical Medicine & Rehabilitation; Visit Provider Physical Medicine & Rehabilitation
DX: M47.27 Other spondylosis with radiculopathy, lumbosacral region (principal); M51.36 Other intervertebral disc degeneration, lumbar region; M17.12 Unilateral primary osteoarthritis, left knee
CPT/HCPCS: 72110; 73562

== ENCOUNTER → 2020-07-01 08:21 | Outpatient (CLI) | payer BC, SELFPAY ==
--- NOTE | 2020-07-01 08:22 | DI.RAD.S_ITS ---
PROCEDURE: XR HIP W PEL IF DONE VLADIMIR MIN 4V INDICATIONS: HIP PAIN TECHNIQUE: AP pelvis with lateral view(s) of the left and right hip(s). COMPARISON: None. FINDINGS: Bones: Lumbar spondylosis and facet arthropathy. No acute fracture identified. Severe right hip osteoarthritis. There is near [id number] appearance. Moderate left hip joint degeneration. Soft tissues: Numerous pelvic phleboliths. IMPRESSION: Bilateral hip osteoarthritis, right greater than left. Dictated by: Lenin Hines M.D. on 07/01/2020 at 10:23 Approved by: Lenin Hines M.D. on 07/01/2020 at 10:24
--- NOTE | 2020-07-01 08:22 | DI.RAD.S_ITS ---
PROCEDURE: XR KNEE RT 3V INDICATIONS: RIGHT KNEE PAIN TECHNIQUE: 3 views of the knee were acquired. COMPARISON: [facility], CR, XR KNEE LT 3V, 01/26/2020, 10:01. FINDINGS: Bones: No fracture identified. Right total knee arthroplasty in expected alignment. No evidence of hardware failure or loosening. Soft tissues: No joint effusion. No suspicious soft tissue calcifications. IMPRESSION: Expected postoperative alignment of right knee arthroplasty. Dictated by: Lenin Hines M.D. on 07/01/2020 at 10:21 Approved by: Lenin Hines M.D. on 07/01/2020 at 10:22
== END ==
PROVIDERS: PCP Family Medicine; Referring Provider Physical Medicine & Rehabilitation; Visit Provider Physical Medicine & Rehabilitation
DX: M25.551 Pain in right hip (principal); M16.0 Bilateral primary osteoarthritis of hip; M25.561 Pain in right knee; Z96.651 Presence of right artificial knee joint
CPT/HCPCS: 73522; 73562

== ENCOUNTER → 2020-08-11 11:38 | Outpatient (CLI) | payer BC, SELFPAY ==
[2020-08-11 12:54] LABS: COVID19 -Nasal RAPID Negative (Negative)
== END ==
PROVIDERS: PCP Family Medicine; Visit Provider Physician Assistant
DX: Z01.812 Encounter for preprocedural laboratory examination (principal); Z20.822 Contact with and (suspected) exposure to COVID-19
CPT/HCPCS: 87635

== ENCOUNTER 2020-08-12 13:00 | Outpatient (CLI) | payer BC, SELFPAY ==
[2020-08-12] VITALS (8 sets, daily range): BP systolic 111–161; BP diastolic 61–77; PULSE 51–61; RESP 10–18; TEMP 36.3; O2SAT 95–100
--- NOTE | 2020-08-12 13:01 | DI.RAD.S_ITS ---
PROCEDURE: PAIN L INTERLAMINAR/CAUDAL INJ INDICATIONS: SPONDYLOSIS COMPARISON: [facility], XA, PAIN L INTERLAMINAR/CAUDAL INJ, 12/18/2019, 13:57. [facility], XA, PAIN L INTERLAMINAR/CAUDAL INJ, 11/30/2018, 9:57. FINDINGS: Fluoroscopic spot filming was performed to verify placement of spinal needles at the dorsal L4-5 level(s), as labeled on the films. Appropriate location(s) of the needle tip(s) was confirmed by injection of iodinated contrast. IMPRESSION: Translaminar epidural L4-5 region needle tip localization for epidural steroid injection. Dictated by: Jimi Briceno M.D. on 08/12/2020 at 15:09 Approved by: Jimi Briceno M.D. on 08/12/2020 at 15:10
[2020-08-12] MEDS: MIDAZOLAM 5 MG/5 ML VIAL IV (13:47)
[2020-08-12] MEDS: fentaNYL 100 MCG/2 ML INJ 50 MCG IV (13:47)
[2020-08-12] MEDS: IOPAMIDOL 15 ML VIAL 3 ML INJ (13:50)
[2020-08-12] MEDS: BUPIVACAINE 0.25% (PF) VIAL 2 ML INJ (13:50)
[2020-08-12] MEDS: DEXAMETHASONE 10 MG/ML VIAL 20 MG INJ (13:51)
[2020-08-12] MEDS: methylPREDNISolone acetate 80 MG/ML VIAL INJ (13:52)
--- NOTE | 2020-08-12 14:00 | P.PCN_ITS ---
Date/Time/Diagnoses Date of procedure: 08/12/20 Time of procedure: 14:00 Pre-procedure diagnosis: 1. HNP WITH RADICULAR FEATURES, 2. MULTILEVEL CENTRAL STENOSIS, Post-procedure diagnosis: same Procedure Notes Procedure: 1. FLUOROSCOPICALLY GUIDED CONTRAST CONTROLLED INTERLAMINAR EPIDURAL STEROID INJECTION -L4/5 Indications: Joesph is referred by Dr. 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 Physician: Jason Lange Total Fluoroscopy time (seconds): 6 Total sedation minutes: 9 Complications: none Procedure in detail & Post-procedure care: FINDINGS Multilevel Central Spinal Stenosis with Nerve Root Compression DESCRIPTION OF PROCEDURE Fluoroscopically guided, contrast-controlled L4/5 translaminar epidural steroid injection. Following review of allergy and review of potential side effects and complications, including, but not necessarily limited to, infection, allergic reaction, local tissue breakdown, temporary as well as permanent nerve injury, paralysis, stroke and possible , the patient indicated that the patient understood and agreed to proceed. An informed consent document was signed by the patient, witnessed by a nurse, and placed in the patient's chart. Additionally, other treatment options including modalities, medications, and physical therapy were reviewed with the patient. After review of previous anaesthesic history and IV conscious sedation the patient was deemed safe to proceed with today?s procedure with IV conscious sedation as ASA class II designation. Safety time-out was performed to confirm patient ID, procedure to be performed and site of procedure. IV sedation was accomplished with a combination of 2mg of Versed and 50mcg of Fentanyl was administered by the RN after DO order, titrated to patient comfort during the course of the procedure while the patient remained responsive to all verbal commands In the prone position, following sterile prep and drape of the lumbar region, the L4/5 translaminar space was identified fluoroscopically. The skin was anesthetized via a 25-gauge, 1.5inch needle with 1% lidocaine solution. At this point, a 22-gauge short bevel spinal needle was atraumatically introduced and advanced under fluoroscopic guidance into the region of the L4/5 translaminar space. Depth was confirmed on lateral view. Radiological data, including multiple fluoroscopic views of the lumbar spine, reveal a spinal needle at the L4/5 translaminar space. Lateral views then show placement of the needle in the epidural space. Subsequent views show contrast material flowing superiorly and inferiorly in the epidural space. No vascular or intrathecal uptake is observed. At this point, using loss of resistance technique with saline and air, the epidural space was entered. This was confirmed following negative aspiration with injection of approximately 1.5cc of Isovue 200, showing excellent epidural flow without vascular or intrathecal uptake. At this point, 1cc of 1% lidocaine solution combined with 3cc or 20mg of dexamethasone and 80mg Depo medrol was injected without incident. The patient tolerated the procedure well without signs or symptoms of complications prior to transfer to the recovery area continued monitoring without incident. The patient was then transferred to the recovery area where they were observed for an appropriate period of time after the injection. The patient reported a VAS score of 6 prior to the procedure and a post- procedure VAS of 0. POST OP INSTRUCTIONS The patient was provided a Pain Log to continue to record their response to the target-specific procedure prior to follow-up visit with their referring physician. Additionally, specific post-injection care instructions and a contact number to our office were provided if concerns arise regarding possible complications associated with the procedure are suspected.
== END 2020-08-12 14:23 | disposition home or self-care (01) ==
LOC: RAD 13:00
PROVIDERS: PCP Family Medicine; Referring Provider Physical Medicine & Rehabilitation; Visit Provider Physical Medicine & Rehabilitation
DX: M51.16 Intervertebral disc disorders with radiculopathy, lumbar region (principal); M48.061 Spinal stenosis, lumbar region without neurogenic claudication
CPT/HCPCS: 62323; J0702; J1040; J1100; J2250; J3010

== ENCOUNTER → 2021-03-05 12:34 | Outpatient (CLI) | payer BC, SELFPAY ==
--- NOTE | 2021-03-05 12:35 | DI.MRI.S_ITS ---
PROCEDURE: MR LUMBAR SPINE WO CON INDICATIONS: Progressive low back pain, compared to 2017 films TECHNIQUE: Noncontrast sagittal T1 spin echo and T2 fast echo, sagittal STIR, axial T1 and T2 fast spin echo through the lumbar spine. In cases with scoliosis, additional coronal T2 fast spin echo may be performed. COMPARISON: [facility], MR, L-SPINE WITHOUT CONTRAST, 02/09/2010, 10:48. [facility], CR, XR LUMBAR SPINE MIN 4V, 01/26/2020, 10:01. [facility], CT, CT KIDNEY URETER BLADDER (KUB), 09/11/2019, 11:34. [facility], MR, L-SPINE WITHOUT CONTRAST, 10/14/2016, 14:28. FINDINGS: Image quality: This examination is limited by involuntary motion artifact. Alignment and Curvature: There is normal bony alignment. Bone Marrow: Marrow is of normal overall signal. No acute vertebral body compression fractures. Fatty metaplasia can be seen involving the sacrum and the medial iliac bones. Spinal Cord: Conus medullaris terminates at the L1 level. Visualized cord demonstrates normal signal and size. Mild prominence of the central canal of the distal cord can be seen, which is similar to prior examinations and considered to be benign. Paraspinous Soft Tissues: No paravertebral masses. T12-L1: Normal appearance. L1-L2: There is at least moderate loss of disc height and disc signal seen. Moderate generalized disc bulge is seen. There is a superimposed central disc protrusion. There is moderate right-sided and moderate to severe left-sided neural foraminal narrowing. There is a degree of compression seen upon the exiting nerve roots. Mild central canal narrowing is seen. These imaging findings have progressed compared to the prior study. L2-L3: Moderate to severe loss of disc height and disc signal can be seen. At least moderate disc bulge is seen, which is eccentric to the right. There is a right foraminal disc protrusion seen, as on series 5, image 12. A central disc protrusion is also seen. At least moderate facet hypertrophy is seen. There is moderate to severe right-sided and at least moderate left-sided neural foraminal narrowing. There is a degree of compression seen upon the exiting nerve roots. Moderate to severe central canal narrowing is seen. These degenerative changes are worse than in 2017. L3-L4: Ikix-yi-ypvnuceu loss of disc height and disc signal can be seen. At least moderate disc bulge is seen. There is a mild central disc extrusion seen. At least moderate facet hypertrophy is seen at this level. There is moderate to severe right-sided and at least moderate left-sided neural foraminal narrowing. There is a degree of compression seen upon the exiting right L3 nerve root. There is severe central canal narrowing, as on series 5 image 17. When comparison is made with the prior images, these findings are similar. L4-L5: At least moderate loss of disc height and disc signal can be seen. At least moderate disc bulge is seen, which is eccentric to the left. There is a superimposed central disc protrusion. Moderate to prominent facet hypertrophy is seen. Associated hypertrophy of the ligamentum flavum can be seen. There is moderate to severe bilateral neural foraminal narrowing seen at this level. There is a degree of compression seen upon the exiting nerve roots. There is severe central canal narrowing, as on series 5, image 21. No significant change from the prior. L5-S1: Moderate to severe loss of disc height and disc signal can be seen. Least moderate disc bulge is seen, with a central/left disc extrusion. There is at least moderate facet hypertrophy at this level. Associated hypertrophy of the ligamentum flavum can be seen. There is moderate to severe bilateral neural foraminal narrowing seen, right worse than left. There is a degree of compression seen upon the exiting nerve roots. Moderate to severe central canal narrowing is seen at this level. These imaging findings have progressed compared to the prior study. IMPRESSION: Multiple levels of significant lumbar spine degenerative change can be seen. Overall, the degenerative changes are progressed compared to 2017. Several sites of significant neural foraminal narrowing can be seen, with associated exiting nerve root compression. There is severe central canal narrowing at L3-L4 and L4-L5, with moderate to severe neural foraminal narrowing seen at L2-L3 and at L5-S1. Dictated by: Shivam Sawyer M.D. on 03/05/2021 at 13:40 Approved by: Shivam Sawyer M.D. on 03/05/2021 at 13:47
== END ==
PROVIDERS: PCP Family Medicine; Referring Provider Physical Medicine & Rehabilitation; Visit Provider Physical Medicine & Rehabilitation
DX: M47.816 Spondylosis without myelopathy or radiculopathy, lumbar region (principal); M47.817 Spondylosis without myelopathy or radiculopathy, lumbosacral region; M48.061 Spinal stenosis, lumbar region without neurogenic claudication; M48.07 Spinal stenosis, lumbosacral region
CPT/HCPCS: 72148

== ENCOUNTER → 2021-03-17 11:44 | Outpatient (CLI) | payer BC, SELFPAY ==
[2021-03-17 13:48] LABS: COVID19 -Nasal RAPID Negative (Negative)
== END ==
PROVIDERS: PCP Family Medicine; Visit Provider Physical Medicine & Rehabilitation
DX: Z20.822 Contact with and (suspected) exposure to COVID-19 (principal)
CPT/HCPCS: 87635; C9803

== ENCOUNTER 2021-03-19 13:49 | Outpatient (CLI) | payer BC, SELFPAY ==
[2021-03-19] VITALS (9 sets, daily range): BP systolic 114–160; BP diastolic 58–95; PULSE 55–67; RESP 12–18; TEMP 36.1; O2SAT 96–100
--- NOTE | 2021-03-19 13:50 | DI.RAD.S_ITS ---
PROCEDURE: PAIN L/S FACET INJ/BLK 1ST VLADIMIR COMPARISON: [facility], MR, MR LUMBAR SPINE WO CON, 03/05/2021, 13:00. [facility], XA, PAIN L INTERLAMINAR/CAUDAL INJ, 08/12/2020, 13:51. INDICATIONS: SPONDYLOSIS FINDINGS: Fluoroscopic spot filming was performed to verify placement of spinal needles on both sides at the L4-L5 and L5-S1 levels, as labeled on the films. Appropriate location of the needle tips was confirmed by injection of iodinated contrast. IMPRESSION: Intraprocedural examination within normal limits. Dictated by: Shivam Sawyer M.D. on 03/19/2021 at 15:00 Approved by: Shivam Sawyer M.D. on 03/19/2021 at 15:00
[2021-03-19] MEDS: MIDAZOLAM 5 MG/5 ML VIAL IV (14:10)
[2021-03-19] MEDS: fentaNYL 100 MCG/2 ML INJ 50 MCG IV (14:10)
[2021-03-19] MEDS: BUPIVACAINE 0.5% (PF) VIAL 5 ML INJ (14:14)
[2021-03-19] MEDS: IOPAMIDOL 15 ML VIAL 3 ML INJ (14:14)
[2021-03-19] MEDS: LIDOCAINE 1% 20 ML (14:15)
[2021-03-19] MEDS: BETAMETHASONE 30 MG/5 ML MDV 12 MG INJ (14:15)
--- NOTE | 2021-03-19 14:30 | P.PCN_ITS ---
Date/Time/Diagnoses Date of procedure: 03/19/21 Time of procedure: 14:30 Pre-procedure diagnosis: 1. FACET ARTHROPATHY 2. AXIAL LBP 3. MULTILEVEL DDD This procedure is found to meet the Governor's proclamation 20-24.2 regarding non urgent procedures. This patient meets multiple criteria for the procedure including continuing or worsening of significant or severe pain, combined with further deterioration of the patient's condition or overall health as well as delay in treatment would be expected to result in less positive ultimate medical outcome. Therefore the decision to perform the procedure in an outpatient hospital setting is found to be in accordance with guidelines of the proclama tion. Post-procedure diagnosis: same Procedure Notes Procedure: 1. FLUOROSCOPICALLY GUIDED CONTRAST CONTROLLED FACET JOINT INJECTIONS BILATERAL L4/5, L5/S1 Indications: Joesph is referred by Dr. Sánchez for treatment of Axial LBP Physician: Jason Lange Total Fluoroscopy time (seconds): 10 Total sedation minutes: 14 Complications: none Procedure in detail & Post-procedure care: FINDINGS Multilevel Facet Arthropathy with Clinically significant axial LBP DESCRIPTION OF PROCEDURE Fluoroscopically guided, contrast-controlled bilateral L4/5, L5/S1 facet joint injections. Following review of allergy and review of potential side effects and complications, including, but not necessarily limited to, infection, allergic reaction, local tissue breakdown, stroke, temporary or permanent nerve injury, paralysis, and possible , the patient indicated that the patient understood and agreed to proceed. An informed consent document was signed by the patient, witnessed by a nurse, and placed in the patient's chart. Additionally, other treatment options including medications, modalities, and physical therapy were reviewed with the patient. After review of previous anaesthesic history and IV conscious sedation the patient was deemed safe to proceed with today?s procedure with IV conscious sedation as ASA class II designation. Safety time-out was performed to confirm patient ID, procedure to be performed and site of procedure. IV sedation was accomplished with a combination of 2mg of Versed and 50mcg of Fentanyl was administered by the RN after DO order, titrated to patient comfort during the course of the procedure while the patient remained responsive to all verbal commands In the prone position, following sterile prep and drape of the lumbar region, the posterior aspect of the L4/5, L5/S1 facet joints were identified fluoroscopically. The skin was anesthetized via a 25-gauge 1.5inch needle with 1% lidocaine solution into the corresponding facet joints. At this point, a 22- gauge 3.5-inch spinal needle was atraumatically introduced and advanced under fluoroscopic guidance into the corresponding facet joints. Following negative aspiration, injections of approximately 0.2cc of Isovue 200 confirmed interarticular placement without vascular uptake. The identical procedure was then performed at the L4/5, L5/S1 facet joints on the left. Radiological data, including multiple fluoroscopic views of the lumbosacral spine, reveal a spinal needle at the L4/5, L5/S1 facet joints bilaterally. Subsequent views show flow of contrast material both superiorly and inferiorly within the joint space without vascular or intrathecal uptake. At this point, a total of 0.5cc including a mixture of 0.25cc Marcaine and 0.25cc betamethasone was injected without complication into each of the corresponding facet joints. The patient tolerated the procedure well without signs or symptoms of complications prior to transfer to the recovery area continued monitoring without incident. The patient was then transferred to the recovery area where they were observed for an appropriate period of time after the injection. The patient reported a VAS score of 7 prior to the procedure and a post- procedure VAS of 0. POST OP INSTRUCTIONS The patient was provided a Pain Log to continue to record their response to the target-specific procedure prior to follow-up visit with their referring physician. Additionally, specific post-injection care instructions and a contact number to our office were provided if concerns arise regarding possible complications associated with the procedure are suspected.
== END 2021-03-19 14:55 | disposition home or self-care (01) ==
PROVIDERS: PCP Family Medicine; Referring Provider Physical Medicine & Rehabilitation; Visit Provider Physical Medicine & Rehabilitation
DX: M47.816 Spondylosis without myelopathy or radiculopathy, lumbar region (principal); M47.817 Spondylosis without myelopathy or radiculopathy, lumbosacral region; M51.36 Other intervertebral disc degeneration, lumbar region; M51.37 Other intervertebral disc degeneration, lumbosacral region
CPT/HCPCS: 64493; 64494; 99152; J0702; J2250; J3010

== ENCOUNTER → 2021-06-15 12:59 | Outpatient (CLI) | payer BC, SELFPAY ==
[2021-06-15 15:38] LABS: COVID19 -Nasal RAPID Negative (Negative)
== END ==
PROVIDERS: PCP Family Medicine; Visit Provider Physical Medicine & Rehabilitation
DX: Z20.822 Contact with and (suspected) exposure to COVID-19 (principal)
CPT/HCPCS: 87635; C9803

== ENCOUNTER 2021-06-16 09:43 | Outpatient (CLI) | payer BC, SELFPAY ==
[2021-06-16] VITALS (10 sets, daily range): BP systolic 109–154; BP diastolic 63–79; PULSE 60–67; RESP 11–19; TEMP 36.6; O2SAT 95–100
--- NOTE | 2021-06-16 | DI.RAD.S_ITS ---
PROCEDURE: PAIN L/SI FACET INJ/BLK 1STL INDICATIONS: Spondylosis COMPARISON: [facility], , PAIN L/S FACET INJ/BLK 1ST VLADIMIR, 03/19/2021, 15:15. FINDINGS: Fluoroscopic spot filming was performed to verify placement of spinal needles on both sides at the L4, L5, and S1 levels, as labeled on the films. Appropriate location of the needle tips was confirmed by injection of iodinated contrast. IMPRESSION: Intraprocedural examination demonstrating appropriate positions of the needles. Dictated by: Shivam Sawyer M.D. on 06/16/2021 at 11:27 Approved by: Shivam Sawyer M.D. on 06/16/2021 at 11:28
[2021-06-16] MEDS: MIDAZOLAM 2 MG/2 ML VIAL IV (10:45)
[2021-06-16] MEDS: LIDOCAINE 1% 20 ML (10:49)
[2021-06-16] MEDS: BUPIVACAINE 0.5% (PF) VIAL 5 ML INJ (10:49)
[2021-06-16] MEDS: IOPAMIDOL 15 ML VIAL 3 ML INJ (10:50)
[2021-06-16] MEDS: MIDAZOLAM 2 MG/2 ML VIAL (10:55)
--- NOTE | 2021-06-16 11:05 | PM.PROC.IR.1 ---
Date/Time/Diagnoses Date of procedure: 06/16/21 Time of procedure: 11:05 Pre-procedure diagnosis: 1. FACET ARTHROPATHY Post-procedure diagnosis: same Procedure Notes Procedure: 1. BILATERAL- L4, L5 and S1 DIAGNOSTIC MB BLOCKS with LA Anesthetic Indications: Joesph is referred by Dr. Sánchez for treatment of Bilateral Axial LBP. Physician: Jason Lange Total Fluoroscopy time (seconds): 20 Total sedation minutes: 15 Complications: none Procedure in detail & Post-procedure care: DESCRIPTION OF PROCEDURE Fluoroscopically guided, contrast-controlled bilateral L4, L5 and S1 medial branch blocks with 0.5cc of 0.5% Marcaine. Following review of allergy and review of potential side effects and complications, including, but not necessarily limited to, infection, allergic reaction, local tissue breakdown, nerve injury, paralysis, stroke and possible , the patient indicated that the patient understood and agreed to proceed. An informed consent document was signed by the patient, witnessed by a nurse, and placed in the patient's chart. After review of previous anaesthesic history and IV conscious sedation the patient was deemed safe to proceed with today's procedure with IV conscious sedation as ASA class II designation. Safety time-out was performed to confirm patient ID, procedure to be performed and site of procedure. IV sedation was accomplished with a combination of 3mg of Versed was administered by the RN after DO order, titrated to patient comfort during the course of the procedure while the patient remained responsive to all verbal commands In the prone position, following sterile prep and drape of the lumbar region, the right L4, L5 and S1 anatomical location of the medial branch of the dorsal ramus was identified fluoroscopically. Subsequently an anesthetic skin wheal using 1% lidocaine solution was initiated at each of the anatomical spots. Subsequently then a 22-gauge 3.5-inch spinal needle was atraumatically introduced and advanced under fluoroscopic guidance at each of the corresponding sites at the right L4, L5 and S1 MB. After negative aspiration, 0.2cc of Isovue 200 was injected, confirming placement without vascular or intrathecal uptake. Subsequently then 0.5cc of 0.5% Marcaine solution was injected at each of the corresponding sites at the right L4, L5 and S1 medial branch locations. The identical procedure was replicated on the left. The patient tolerated the procedure well without signs or symptoms of complications prior to transfer to the recovery area continued monitoring without incident. Post-procedure, the patient was monitored initiating provocative activities to measure the amount of relief from block of the facetogenic pain. The patient reported a VAS of 7 prior to the procedure and a post-procedure VAS of 1. It has been a pleasure to assist in the diagnostic and therapeutic care of your patient. POST OP INSTRUCTIONS The patient was provided with a Pain Log to complete over the next several hours and subsequent days prior to the patient's follow up with the ordering physician. If the patient has hospice community liaison relief to the solution applied, then they may be a candidate for medial branch rhizotomy. The patient is aware, was provided, once again, with a Pain Log and will follow up with the referring physician for review and clinical correlation
--- NOTE | 2021-06-16 11:42 | PC.NURSE ---
patient arrived to recovery with bilateral leg weakness. He was reassessed by standing and stepping in place at 1125. Weakness much improved, but not quite enought to be discharged. Patient was reassessed again at 1135. Patient was able to step in place and take steps forward and back. Patient ok to be discharged. Patient also did well with his transfer from the wheelchair to the car.
== END 2021-06-16 11:37 | disposition home or self-care (01) ==
LOC: RAD 09:45
PROVIDERS: PCP Family Medicine; Referring Provider Physical Medicine & Rehabilitation; Visit Provider Physical Medicine & Rehabilitation
DX: M47.816 Spondylosis without myelopathy or radiculopathy, lumbar region (principal); M47.817 Spondylosis without myelopathy or radiculopathy, lumbosacral region
CPT/HCPCS: 64493; 64494; 99152; J2250

== ENCOUNTER 2021-11-19 07:24 | Outpatient (CLI) | payer BC, SELFPAY ==
[2021-11-19] VITALS (13 sets, daily range): BP systolic 93–126; BP diastolic 52–73; PULSE 57–69; RESP 9–20; TEMP 36.5; O2SAT 94–99
--- NOTE | 2021-11-19 08:15 | DI.RAD.S_ITS ---
PROCEDURE: PAIN L/S MED/LAT N RFA BILAT INDICATIONS: SPONDYLOSIS COMPARISON: [facility], XA, PAIN L/SI FACET INJ/BLK 1STL, 06/16/2021, 10:49. FINDINGS: Fluoroscopic spot filming was performed to verify placement of spinal needles at the right L3-L4, L4-L5, L5-S1 level(s), as labeled on the films. Appropriate location(s) of the needle tip(s) was confirmed by injection of iodinated contrast. IMPRESSION: Image guidance provided. Dictated by: Emeka Menendez M.D. on 11/19/2021 at 12:02 Approved by: Emeka Menendez M.D. on 11/19/2021 at 12:03
[2021-11-19] MEDS: MIDAZOLAM 2 MG/2 ML VIAL 4 MG IV (08:38)
[2021-11-19] MEDS: LIDOCAINE 1% 20 ML INJ (08:39)
[2021-11-19] MEDS: BUPIVACAINE 0.5% (PF) VIAL 10 ML INJ (08:39)
--- NOTE | 2021-11-19 08:55 | P.PCN_ITS ---
Date/Time/Diagnoses Date of procedure: 11/19/21 Time of procedure: 08:55 Pre-procedure diagnosis: 1. RECALCITRANT FACET ARTHROPATHY Post-procedure diagnosis: same Procedure Notes Procedure: 1. BILATERAL L4 AND L5 MEDIAL BRANCH RADIOFREQUENCY NEUROTOMY AND S1 DORSAL RAMUS BRANCH RADIOFREQUENCY NEUROTOMY Indications: Joesph is referred by Dr. Sánchez for treatment of facet arthropathy. Physician: Jason Lange Total Fluoroscopy time (seconds): 18 Total sedation minutes: 26 Complications: none Procedure in detail & Post-procedure care: DESCRIPTION OF PROCEDURE Bilateral L4 and L5 medial branch radiofrequency neurotomy and bilateral S1 dorsal ramus radiofrequency neurotomy under fluoroscopy with conscious sedation. The patient is well known to this clinic having undergone previous facet injections with good but temporary relief. The patient has experienced appropriate, concordant relief with previous facet and median branch blocks but the patient's pain has been recalcitrant to further conservative measures. Therefore, based upon the patient's relief and persistent symptoms, the patient is considered an appropriate candidate for facet rhizotomy. All of the patient's questions regarding the risks versus benefits of the procedure, including, but not limited to, bleeding, infection, temporary as well as lasting nerve injury, paralysis, stroke, and , as well treatment alternatives were answered to satisfaction. After obtaining informed consent, denial of pertinent drug allergies, as well as being made aware of the potential risks of bleeding, infection, spinal cord trauma, paralysis, temporary and permanent nerve damage, seizure, stroke, and possible , the patient was brought to the fluoroscopy suite and positioned prone on the fluoroscopy table. The lumbar region was prepped with Betadine and covered with a fenestrated drape in the usual sterile fashion. Appropriate monitors applied including pulse oximeter, pulse, and blood pressure for regular monitoring throughout the procedure. After review of previous anaesthesic history and IV conscious sedation the patient was deemed safe to proceed with today's procedure with IV conscious sedation as ASA class II designation. Safety time-out was performed to confirm patient ID, procedure to be performed and site of procedure. IV sedation was accomplished with a combination of 4mg of Versed administered by the RN after DO order, titrated to patient comfort during the course of the procedure while the patient remained responsive to all verbal commands. After local infiltration using 1% lidocaine, under fluoroscopic guidance, a 10- cm RF insulated needle with a 10-mm active tip was positioned parallel to the junction of the right sacral ala and the superior articulating process where the S1 dorsal ramus resides. Needle placement was confirmed with motor stimulation of .5v on the right which produced local stimulation without radicular component. The stimulation was then increased to 2v with, once again, only local multifidus stimulation without radicular component. The needle was then removed and the identical procedure was performed along the length of the right L5 medial branch with motor stimulation at .7v on the right. The identical procedure was once again performed along the length of the right L4 medial branch with motor stimulation of .5v on the right. The medial branches were then anesthetised with 0.5% Marcaine. This was then followed by two discreet lesions performed at 80 degrees Celsius for 90 seconds each. The identical procedure was repeated on the left. The patient tolerated the procedure well without signs or symptoms of complications prior to transfer to the recovery area continued monitoring without incident. The patient was then transferred to the recovery area where they were observed for an appropriate period of time after the injection. The patient reported a VAS score of 9 prior to the procedure and a post-procedure VAS of 0. POST OP INSTRUCTIONS The patient was provided a Pain Log to continue to record the patient's response to the target-specific procedure prior to the patient's follow-up visit with the referring physician. Additionally, specific post-injection care instructions and a contact number to our office were provided if concerns arise regarding possible complications associated with the procedure are suspected.
--- NOTE | 2021-11-19 09:08 | PC.NURSE ---
0814 Patient arrived post injection very drowsy with weakness to BLE. 3 person assist from WC to recliner. He c/o double/blurry vision. Bleeding noted to two lower injection sites on left side. These were reinforced with two new bandaids. 0910 Patient reports vision is clearing. He is awake and alert. VSS. No further bleeding to injection sites.
--- NOTE | 2021-11-19 09:17 | PC.NURSE ---
Patient continues to improve. No further c/o vision issues or dizziness. Up with 2 person assist to stand and march in place. He reports similar to his baseline morning mobility and gait. VSS at pre-injection baseline. Eating cookies and drinking fluids without difficulty. Will verify discharge with Dr. Lange.
== END 2021-11-19 09:28 | disposition home or self-care (01) ==
PROVIDERS: PCP Family Medicine; Referring Provider Physical Medicine & Rehabilitation; Visit Provider Physical Medicine & Rehabilitation
DX: M47.816 Spondylosis without myelopathy or radiculopathy, lumbar region (principal); M47.817 Spondylosis without myelopathy or radiculopathy, lumbosacral region
CPT/HCPCS: 64635; 64636; 99152; 99153; J2250

== ENCOUNTER 2022-03-30 12:56 | Outpatient (CLI) | payer BC, SELFPAY ==
[2022-03-30] VITALS (8 sets, daily range): BP systolic 104–139; BP diastolic 59–77; PULSE 61–85; RESP 12–18; TEMP 37; O2SAT 94–98
--- NOTE | 2022-03-30 12:59 | DI.RAD.S_ITS ---
PROCEDURE: PAIN L INTERLAMINAR/CAUDAL INJ INDICATIONS: SPONDYLOSIS COMPARISON: [facility], XA, PAIN L INTERLAMINAR/CAUDAL INJ, 08/12/2020, 13:51. FINDINGS: Fluoroscopic spot filming was performed to verify placement of spinal needles at the right L4-5 level(s), as labeled on the films. Appropriate location(s) of the needle tip(s) was confirmed by injection of iodinated contrast. IMPRESSION: Intraoperative fluoroscopy for epidural steroid injection. Dictated by: Kathy Judd M.D. on 03/30/2022 at 18:17 Approved by: Kathy Judd M.D. on 03/30/2022 at 18:17
[2022-03-30] MEDS: MIDAZOLAM 2 MG/2 ML VIAL IV (13:49)
[2022-03-30] MEDS: IOPAMIDOL 15 ML VIAL 3 ML INJ (13:52)
[2022-03-30] MEDS: DEXAMETHASONE 10 MG/ML VIAL 20 MG INJ (13:53)
[2022-03-30] MEDS: BETAMETHASONE 30 MG/5 ML MDV 6 MG INJ (13:53)
[2022-03-30] MEDS: BUPIVACAINE 0.25% (PF) VIAL 2 ML INJ (13:53)
--- NOTE | 2022-03-30 14:02 | P.PCN_ITS ---
Date/Time/Diagnoses Date of procedure: 03/30/22 Time of procedure: 14:03 Pre-procedure diagnosis: 1. HNP WITH RADICULAR FEATURES, 2. MULTILEVEL CENTRAL STENOSIS, Post-procedure diagnosis: same Procedure Notes Procedure: 1. FLUOROSCOPICALLY GUIDED CONTRAST CONTROLLED INTERLAMINAR EPIDURAL STEROID INJECTION -L4/5 Indications: Joesph is referred by Dr. 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 Physician: Jason Lange Total Fluoroscopy time (seconds): 6 Total sedation minutes: 9 Complications: none Procedure in detail & Post-procedure care: FINDINGS Multilevel Central Spinal Stenosis with Nerve Root Compression DESCRIPTION OF PROCEDURE Fluoroscopically guided, contrast-controlled L4/5 translaminar epidural steroid injection. Following review of allergy and review of potential side effects and complications, including, but not necessarily limited to, infection, allergic reaction, local tissue breakdown, temporary as well as permanent nerve injury, paralysis, stroke and possible , the patient indicated that the patient understood and agreed to proceed. An informed consent document was signed by the patient, witnessed by a nurse, and placed in the patient's chart. Additionally, other treatment options including modalities, medications, and physical therapy were reviewed with the patient. After review of previous anaesthesic history and IV conscious sedation the patient was deemed safe to proceed with today?s procedure with IV conscious sedation as ASA class II designation. Safety time-out was performed to confirm patient ID, procedure to be performed and site of procedure. IV sedation was accomplished with a combination of 2mg of Versed was administered by the RN after DO order, titrated to patient comfort during the course of the procedure while the patient remained responsive to all verbal commands In the prone position, following sterile prep and drape of the lumbar region, the L4/5 translaminar space was identified fluoroscopically. The skin was anesthetized via a 25-gauge, 1.5inch needle with 1% lidocaine solution. At this point, a 22-gauge short bevel spinal needle was atraumatically introduced and a dvanced under fluoroscopic guidance into the region of the L4/5 translaminar space. Depth was confirmed on lateral view. Radiological data, including multiple fluoroscopic views of the lumbar spine, reveal a spinal needle at the L4/5 translaminar space. Lateral views then show placement of the needle in the epidural space. Subsequent views show contrast material flowing superiorly and inferiorly in the epidural space. No vascular or intrathecal uptake is observed. At this point, using loss of resistance technique with saline and air, the epidural space was entered. This was confirmed following negative aspiration with injection of approximately 1.5cc of Isovue 200, showing excellent epidural flow without vascular or intrathecal uptake. At this point, 1cc of 1% lidocaine solution combined with 3cc or 20mg of dexamethasone and 6mg betamethasone was injected without incident. The patient tolerated the procedure well without signs or symptoms of complications prior to transfer to the recovery area continued monitoring without incident. The patient was then transferred to the recovery area where they were observed for an appropriate period of time after the injection. The patient reported a VAS score of 6 prior to the procedure and a post- procedure VAS of 0. POST OP INSTRUCTIONS The patient was provided a Pain Log to continue to record their response to the target-specific procedure prior to follow-up visit with their referring physician. Additionally, specific post-injection care instructions and a contact number to our office were provided if concerns arise regarding possible complications associated with the procedure are suspected.
== END 2022-03-30 14:22 | disposition home or self-care (01) ==
PROVIDERS: PCP Family Medicine; Referring Provider Physical Medicine & Rehabilitation; Visit Provider Physical Medicine & Rehabilitation
DX: M51.16 Intervertebral disc disorders with radiculopathy, lumbar region (principal); M48.062 Spinal stenosis, lumbar region with neurogenic claudication
CPT/HCPCS: 62323; J0702; J1100; J2250; J3490

== ENCOUNTER 2022-06-20 13:38 | Emergency (ER) | payer BC, SELFPAY ==
[2022-06-20] VITALS (11 sets, daily range): BP systolic 115–179; BP diastolic 64–87; PULSE 57–79; RESP 13–24; TEMP 36.6; O2SAT 95–98; BMI 26.6
--- NOTE | 2022-06-20 13:42 | DI.RAD.S_ITS ---
PROCEDURE: XR CHEST 1V INDICATIONS: chest pain TECHNIQUE: One view of the chest was acquired. COMPARISON: None. FINDINGS: Surgical changes and devices: Low anterior cervical fusion. Lungs and pleura: Lungs are clear. No pleural effusions or pneumothorax. Mediastinum: Mediastinal contours appear normal. Heart size is normal. Bones and chest wall: No suspicious bony lesions. Overlying soft tissues appear unremarkable. IMPRESSION: No acute process. Dictated by: Cydney Ocampo M.D. on 06/20/2022 at 13:59 Approved by: Cydney Ocampo M.D. on 06/20/2022 at 13:59
--- NOTE | 2022-06-20 13:57 | ED.CHESTPAIN ---
HPI - Chest Pain General Chief Complaint: Chest Pain Stated Complaint: Chest Pain/ Pressure sent by [facility] Time Seen by Provider: 06/20/22 13:42 Source: patient Mode of arrival: Ambulatory Limitations: no limitations History of Present Illness HPI narrative: Patient is an 86-year-old male who was sent over from the walk-in clinic for evaluation of chest congestion and chest pressure. He states that 2 days ago he had an episode where he stated that he felt dizzy. Sat down at the time. He had chest pressure that lasted only a few minutes and then completely resolved. He was able to go about his daily activities afterwards. Has not had anything since then. He does admit that every year he gets congestion. He has been trying [id number] medications. He states that it sometimes moves down into his chest and that is what he feels like his happened now. He does have a productive cough. No fevers. Currently is not having any chest pain or shortness of breath. Has never had a heart attack in the past. Related Data Home Medications Medication Instructions Recorded Confirmed omeprazole 20 mg capsule,delayed 20 mg PO QDAY ##0 09/21/12 02/22/22 release acetaminophen 500 mg tablet 500 mg PO PRN ##0 09/22/12 02/22/22 (Tylenol Extra Strength) [MULTIVITAMIN] 1 tab PO QDAY ##0 10/04/12 02/22/22 ascorbic acid (vitamin C) 1,000 mg 1,000 mg PO DAILY 07/15/17 02/22/22 tablet,extended release lisinopril 20 mg tablet 20 mg PO TID #0 tabs 01/15/19 02/22/22 finasteride 5 mg tablet 5 mg PO DAILY 12/05/19 02/22/22 Lactobacillus acidophilus and cap PO 10/07/20 02/22/22 rhamnosus 15 billion cell capsule (Probiotic) cyanocobalamin (vitamin B-12) 5,000 mcg sublingual DAILY 10/07/20 02/22/22 5,000 mcg sublingual tablet (Vitamin B-12) magnesium 200 mg tablet 400 mg PO DAILY 10/07/20 02/22/22 melatonin 10 mg tablet 10 mg PO BEDTIME PRN Insomnia 10/28/20 02/22/22 furosemide 20 mg tablet 20 mg PO DAILY 10/05/21 02/22/22 hydrochlorothiazide 12.5 mg tablet 12.5 mg PO DAILY 10/05/21 02/22/22 tamsulosin 0.4 mg capsule 0.4 mg PO BEDTIME 02/22/22 02/22/22 Previous Rx's Medication Instructions Recorded gabapentin 300 mg capsule 300 mg PO .COMPLEX #90 caps 08/21/21 tramadol 50 mg tablet 50 mg PO BID PRN pain #42 tabs 01/20/22 meloxicam 15 mg tablet 15 mg PO DAILY #30 tabs 03/25/22 Allergies Allergy/AdvReac Type Severity Reaction Status Date / Time Iodinated Contrast Media Allergy Severe THROAT Verified 06/20/22 13:25 [IODINATED CONTRAST MEDIA - SWELLING, IV DYE] SHOCK ciprofloxacin [CIPROFLOXACIN] AdvReac Mild HALLUCINATIONS, Verified 06/20/22 13:25 INSOMNIA levofloxacin [LEVOFLOXACIN] AdvReac Mild HALLUCINATIONS, Verified 06/20/22 13:25 INSOMNIA hydromorphone [HYDROMORPHONE] AdvReac Unknown NAUSEA AND Verified 06/20/22 13:25 VOMITING Review of Systems Constitutional Constitutional: Reports system reviewed and no additional complaints, except as documented ENT Ears, Nose, Mouth, and Throat: Reports system reviewed and no additional complaints, except as documented Respiratory Respiratory: Reports system reviewed and no additional complaints, except as documented Gastrointestinal Gastrointestinal: Reports system reviewed and no additional complaints, except as documented Integumentary/Breasts Skin/Breast: Reports system reviewed and no additional complaints, except as documented Hematologic/Lymphatic On Anticoagulants: No Patient History Medical History Degenerative cervical spinal stenosis Facet arthropathy, lumbar Lumbosacral spondylosis with radiculopathy Surgical History History of total right knee replacement Social History Smoking Status: Former smoker Smoking Status: Former smoker alcohol intake frequency: 0-2 drinks per day Substance Use Type: does not use Exam Initial Vital Signs Initial Vital Signs: Vital Signs Temperature 98 F 06/20/22 13:48 Pulse Rate 76 06/20/22 13:48 Respiratory Rate 24 06/20/22 13:48 Blood Pressure 179/87 H 06/20/22 13:48 Pulse Oximetry 97 06/20/22 13:48 Oxygen Delivery Method Room Air 06/20/22 13:48 Const General: cooperative, comfortable and No ill appearing HENMT Head: normal to inspection and normocephalic Resp Effort & Inspection: normal respiratory effort Auscultation: clear to auscultation bilaterally Cardio Rate: regular rate Rhythm: regular rhythm GI Inspection: normal to inspection Palpation: soft and No tender Skin General: no rashes or lesions noted Neuro General: patient alert, patient awake, patient oriented x3 and moves all extremities Extrem General: capillary refill normal Course Orders Ordered: ED Orders 06/20/22 13:42 XR chest 1V Stat 06/20/22 14:00 EKG-12 Lead Stat 06/20/22 14:03 Complete Blood Count AUTO DIFF Stat Comprehensive Metabolic Panel Stat Lipase Stat Magnesium Stat Troponin & CK Cardiac Panel Stat 06/20/22 16:07 Troponin & CK Cardiac Panel Stat Vital Signs Vital signs: Vital Signs - 8 hr 06/20/22 13:48 06/20/22 13:54 06/20/22 13:57 Temperature 98 F Pulse Rate 76 79 74 Respiratory Rate 24 17 Blood Pressure 179/87 H Pulse Oximetry 97 98 97 Oxygen Delivery Method Room Air 06/20/22 13:57 06/20/22 14:05 06/20/22 14:05 Temperature Pulse Rate 69 Respiratory Rate 15 Blood Pressure 158/84 H 129/66 Pulse Oximetry 96 Oxygen Delivery Method 06/20/22 14:30 06/20/22 14:30 06/20/22 15:00 Temperature Pulse Rate 62 Respiratory Rate 13 Blood Pressure 115/64 126/67 Pulse Oximetry 95 Oxygen Delivery Method Room Air 06/20/22 15:00 06/20/22 15:30 06/20/22 15:30 Temperature Pulse Rate 69 59 L Respiratory Rate 13 Blood Pressure 115/66 Pulse Oximetry 95 96 Oxygen Delivery Method 06/20/22 16:00 06/20/22 16:00 06/20/22 16:30 Temperature Pulse Rate 57 L Respiratory Rate 16 Blood Pressure 119/70 120/68 Pulse Oximetry 97 Oxygen Delivery Method 06/20/22 16:30 06/20/22 17:00 06/20/22 17:01 Temperature Pulse Rate 61 65 64 Respiratory Rate 13 Blood Pressure Pulse Oximetry 98 97 98 Oxygen Delivery Method Room Air Room Air 06/20/22 17:01 Temperature Pulse Rate Respiratory Rate Blood Pressure 138/72 Pulse Oximetry Oxygen Delivery Method MDM - Chest Pain Medical Records Data Attestation: I reviewed the patient's medical records. Lab Data Attestation: I reviewed the patient's lab results. 06/20/22 14:03 06/20/22 14:03 Labs: Lab Results 06/20/22 06/20/22 06/20/22 Range/Units 14:03 14:03 16:07 WBC 6.0 (4.5-11.0) X10^3/uL RBC 3.49 L (4.5-5.9) X10^6/uL Hgb 11.2 L (13.5-17.5) g/dL Hct 32.3 L (41-53) % MCV 92.5 (80-100) fL MCH 32.2 (26-34) PG MCHC 34.8 (30-36) % RDW 13.3 (11.6-14.8) % Plt Count 217 (150-400) X10^3/uL Neut % (Auto) 68.8 (50-75) % Lymph % (Auto) 19.4 L (25-40) % [place] % (Auto) 8.1 (3-14) % Eos % (Auto) 2.9 (2-4) % Baso % (Auto) 0.8 (0-2) % Neut # (Auto) 4100 (7303-0591) /uL Lymph # (Auto) 1200 (2290-7118) /uL [place] # (Auto) 500 (0-900) /uL Eos # (Auto) 200 (0-450) /uL Baso # (Auto) 0 (0-100) /uL Sodium 138 (137-145) mmol/L Potassium 4.6 (3.4-5.1) mmol/L Chloride 105 (98-107) mmol/L Carbon Dioxide 28 (22-32) mmol/L BUN 41 H (9-20) mg/dL Creatinine 1.50 H (0.66-1.25) mg/dL Estimated GFR 45 L (>60) mL/min BUN/Creatinine Ratio 27.3 H (6-22) Glucose 121 H (80-110) mg/dL Calcium 9.7 (8.4-10.2) mg/dL Magnesium 2.4 H (1.6-2.3) mg/dL Total Bilirubin 0.3 (0.2-1.3) mg/dL AST 28 (17-59) IU/L ALT 19 (<50) IU/L Alkaline Phosphatase 48 (38-126) U/L Total Creatine Kinase 279 H 233 H (55-170) U/L CK-MB (CK-2) 2.51 H 2.30 (<2.37) ng/mL CK-MB (CK-2) Rel Index 0.9 L 1.0 L (1.5-5.0) % Troponin I < 0.012 < 0.012 (0.01-0.034) ng/mL Total Protein 7.0 (6.3-8.2) g/dL Albumin 4.2 (3.5-5.0) g/dL Globulin 2.8 (1.7-4.1) g/dL Albumin/Globulin Ratio 1.5 (1.0-2.8) Lipase 103 (23-300) U/L Imaging Data Chest x-ray: Radiologist's Impression: PROCEDURE:? XR CHEST 1V ? INDICATIONS:? chest pain ? TECHNIQUE:? One view of the chest was acquired.? ? COMPARISON:? None. ? FINDINGS:? ? Surgical changes and devices:? Low anterior cervical fusion. ? Lungs and pleura:? Lungs are clear.? No pleural effusions or pneumothorax.? ? Mediastinum:? Mediastinal contours appear normal.? Heart size is normal.? ? Bones and chest wall:? No suspicious bony lesions.? Overlying soft tissues appear unremarkable.? ? IMPRESSION:? No acute process. 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 Troponins are negative x2. Chest x-ray shows no signs of pneumonia. Patient is not hypoxic. Lungs are clear. He has had sinus congestion respiratory issues for some time. He is seen clinical dietitian and also ENT. Has been on all sorts of medications to include nasal sprays and also antihistamines and decongestants none of which have ever helped any of his symptoms. Had a long discussion with him regarding his symptoms today. There is no indication for antibiotics. Reassured the patient. Will discharge home. He was given return precautions. He expressed understanding and agreement. Discharge Plan Departure Patient Disposition: Home Clinical Impression: Congestion of nasal sinus, Atypical chest pain Instructions: DI for Atypical Chest Pain Activity Restrictions/Additional Instructions: Recommend that you continue to take all of your medications as directed. Contact your primary care doctor for a follow-up. Return to the emergency department for new or worsening symptoms. Prescriptions: No Action omeprazole 20 MG capsule,delayed release(DR/EC) 20 mg PO QDAY Qty: 0 acetaminophen [Tylenol Extra Strength] 500 MG tablet 500 mg PO PRN Qty: 0 [MULTIVITAMIN] 1 tab PO QDAY Qty: 0 lisinopril 20 mg tablet 20 mg PO TID Qty: 0 gabapentin 300 mg capsule 300 mg PO .COMPLEX Qty: 90 2RF Rx Instructions: 1-2 PO Tid to begin at HS and titrate to pain relief tramadol 50 mg tablet 50 mg PO BID PRN (Reason: pain) Qty: 42 2RF meloxicam 15 mg tablet 15 mg PO DAILY Qty: 30 3RF magnesium 200 mg Tablet 400 mg PO DAILY cyanocobalamin (vitamin B-12) [Vitamin B-12] 5,000 mcg Tablet, Sublingual 5,000 mcg SUBLINGUAL DAILY Probiotic 15 billion cell Capsule PO melatonin 10 mg Tablet 10 mg PO BEDTIME PRN (Reason: Insomnia) finasteride 5 mg tablet 5 mg PO DAILY tamsulosin 0.4 mg capsule 0.4 mg PO BEDTIME ascorbic acid (vitamin C) 1,000 mg tablet extended release 1,000 mg PO DAILY hydrochlorothiazide 12.5 mg tablet 12.5 mg PO DAILY furosemide 20 mg tablet 20 mg PO DAILY Patient Comments: TAKE 1 TABLET BY MOUTH EVERY MORNING Referrals: Jason Sánchez MD [Primary Care Provider] - Stand Alone Forms: Patient Portal/API
[2022-06-20 14:10] LABS: Add Manual Diff / Slide Review NO; Basophils Absolute Auto 0 /uL (0-100); Basophils Percent Auto 0.8 % (0-2); Eosinophils Absolute Auto 200 /uL (0-450); Eosinophils Percent Auto 2.9 % (2-4); Hematocrit 32.3 % (41-53); Hemoglobin 11.2 g/dL (13.5-17.5); Lymphocytes Absolute Auto 1200 /uL (1100-4500); Lymphocytes Percent Auto 19.4 % (25-40); Mean Corpuscular HGB Conc 34.8 % (30-36); Mean Corpuscular Hemoglobin 32.2 PG (26-34); Mean Corpuscular Volume 92.5 fL (80-100); Monocytes Absolute Auto 500 /uL (0-900); Monocytes Percent Auto 8.1 % (3-14); Neutrophils Absolute Auto 4100 /uL (1500-7000); Neutrophils Percent Auto 68.8 % (50-75); Platelet Count 217 X10^3/uL (150-400); Red Blood Cell Count 3.49 X10^6/uL (4.5-5.9); Red Cell Distribution Width 13.3 % (11.6-14.8)
--- NOTE | 2022-06-20 14:13 | PC.NURSE ---
Pt reports chest pressure when lying down at night that is equal across all of my chest and goes to back. Pt also had one episode of chest pressure that felt like really bad indigestion, with dizziness that lasted about 5-6 minutes on Tuesday after working outside.
[2022-06-20 14:23] LABS: Alanine Aminotransferase 19 IU/L (<50); Albumin 4.2 g/dL (3.5-5.0); Albumin Globulin Ratio 1.5 (1.0-2.8); Alkaline Phosphatase 48 U/L (38-126); Aspartate Aminotransferase 28 IU/L (17-59); BUN Creatinine Ratio 27.3 (6-22); Bilirubin Total 0.3 mg/dL (0.2-1.3); Blood Urea Nitrogen 41 mg/dL (9-20); Calcium 9.7 mg/dL (8.4-10.2); Carbon Dioxide 28 mmol/L (22-32); Chloride 105 mmol/L (98-107); Creatine Kinase 279 U/L (55-170); Estimated Glomerular Filt Rate 45 mL/min (>60); Globulin 2.8 g/dL (1.7-4.1); Glucose 121 mg/dL (80-110); HEMOLYSIS < 15 (0-50); Lipase 103 U/L (23-300); Magnesium 2.4 mg/dL (1.6-2.3); Potassium 4.6 mmol/L (3.4-5.1); Sodium 138 mmol/L (137-145)
[2022-06-20 14:35] LABS: Troponin I < 0.012 ng/mL (0.01-0.034)
[2022-06-20 14:39] LABS: CKMB % Relative Index 0.9 % (1.5-5.0); Creatine Kinase MB 2.51 ng/mL (<2.37)
[2022-06-20 16:32] LABS: Creatine Kinase 233 U/L (55-170)
[2022-06-20 16:45] LABS: Troponin I < 0.012 ng/mL (0.01-0.034)
== END 2022-06-20 17:24 | disposition home or self-care (01) ==
PROVIDERS: Emergency Provider Emergency Medicine; PCP Family Medicine
DX: R07.89 Other chest pain (principal); R09.81 Nasal congestion; R42 Dizziness and giddiness
CPT/HCPCS: 36415; 71045; 80053; 82550; 82553; 83690; 83735; 84484; 85025; 93005; 99284

== ENCOUNTER 2022-07-08 08:52 | Outpatient (CLI) | payer BC, SELFPAY ==
[2022-07-08] VITALS (18 sets, daily range): BP systolic 115–148; BP diastolic 60–73; PULSE 59–69; RESP 12–21; TEMP 36.3; O2SAT 96–100
--- NOTE | 2022-07-08 08:53 | DI.RAD.S_ITS ---
PROCEDURE: PAIN L INTERLAMINAR/CAUDAL INJ INDICATIONS: SPONDYLOSIS COMPARISON: [facility], , PAIN L INTERLAMINAR/CAUDAL INJ, 03/30/2022, 14:52. FINDINGS: Fluoroscopic spot filming was performed to verify placement of epidural needle at the L4-L5 level(s), as labeled on the films. IMPRESSION: C-arm imaging utilized during performance of a epidural steroid injection by the referring interventional pain physician. Dictated by: Nic Dumas M.D. on 07/08/2022 at 13:32 Approved by: Nic Dumas M.D. on 07/08/2022 at 13:33
[2022-07-08] MEDS: MIDAZOLAM 2 MG/2 ML VIAL IV (09:44)
[2022-07-08] MEDS: DEXAMETHASONE 10 MG/ML VIAL 20 MG INJ (09:49)
[2022-07-08] MEDS: BETAMETHASONE 30 MG/5 ML MDV 6 MG INJ (09:49)
[2022-07-08] MEDS: BUPIVACAINE 0.25% (PF) VIAL 2 ML INJ (09:49)
[2022-07-08] MEDS: IOPAMIDOL 15 ML VIAL 3 ML INJ (09:50)
--- NOTE | 2022-07-08 10:01 | P.PCN_ITS ---
Date/Time/Diagnoses Date of procedure: 07/08/22 Time of procedure: 10:01 Pre-procedure diagnosis: 1. HNP WITH RADICULAR FEATURES, 2. MULTILEVEL CENTRAL STENOSIS, Post-procedure diagnosis: same Procedure Notes Procedure: 1. FLUOROSCOPICALLY GUIDED CONTRAST CONTROLLED INTERLAMINAR EPIDURAL STEROID INJECTION -L4/5 Indications: Joesph is referred by Dr. 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 Physician: Jason Lange Total Fluoroscopy time (seconds): 8 Total sedation minutes: 10 Complications: none Procedure in detail & Post-procedure care: FINDINGS Multilevel Central Spinal Stenosis with Nerve Root Compression DESCRIPTION OF PROCEDURE Fluoroscopically guided, contrast-controlled L4/5 translaminar epidural steroid injection. Following review of allergy and review of potential side effects and complications, including, but not necessarily limited to, infection, allergic reaction, local tissue breakdown, temporary as well as permanent nerve injury, paralysis, stroke and possible , the patient indicated that the patient understood and agreed to proceed. An informed consent document was signed by the patient, witnessed by a nurse, and placed in the patient's chart. Additionally, other treatment options including modalities, medications, and physical therapy were reviewed with the patient. After review of previous anaesthesic history and IV conscious sedation the patient was deemed safe to proceed with today?s procedure with IV conscious sedation as ASA class II designation. Safety time-out was performed to confirm patient ID, procedure to be performed and site of procedure. IV sedation was accomplished with a combination of 2mg of Versed was administered by the RN after DO order, titrated to patient comfort during the course of the procedure while the patient remained responsive to all verbal commands In the prone position, following sterile prep and drape of the lumbar region, the L4/5 translaminar space was identified fluoroscopically. The skin was anesthetized via a 25-gauge, 1.5inch needle with 1% lidocaine solution. At this point, a 22-gauge short bevel spinal needle was atraumatically introduced and advanced under fluoroscopic guidance into the region of the L4/5 translaminar space. Depth was confirmed on lateral view. Radiological data, including multiple fluoroscopic views of the lumbar spine, reveal a spinal needle at the L4/5 translaminar space. Lateral views then show placement of the needle in the epidural space. Subsequent views show contrast material flowing superiorly and inferiorly in the epidural space. No vascular or intrathecal uptake is observed. At this point, using loss of resistance technique with saline and air, the epidural space was entered. This was confirmed following negative aspiration with injection of approximately 1.5cc of Isovue 200, showing excellent epidural flow without vascular or intrathecal uptake. At this point, 1cc of 1% lidocaine solution combined with 3cc or 20mg of dexamethasone and 6mg betamethasone was injected without incident. The patient tolerated the procedure well without signs or symptoms of complications prior to transfer to the recovery area continued monitoring without incident. The patient was then transferred to the recovery area where they were observed for an appropriate period of time after the injection. The patient reported a VAS score of 6 prior to the procedure and a post- procedure VAS of 0. POST OP INSTRUCTIONS The patient was provided a Pain Log to continue to record their response to the target-specific procedure prior to follow-up visit with their referring physician. Additionally, specific post-injection care instructions and a contact number to our office were provided if concerns arise regarding possible complications associated with the procedure are suspected.
[2022-07-08] MEDS: HYDROCODONE/ACET 5/325 TABLET 2 TAB PO (10:36)
--- NOTE | 2022-07-08 11:56 | PC.NURSE ---
Patient arrived to the post procedure room and was transferred from the wheelchair to the recliner and it was noted that he had some weakness to his bilateral legs. Patient continually assessed every five minutes and his legs began to become more numb and he then he also complained of 10 pain in his right buttock at approximately 1019. multiple attempts were made to make the patient more comfortable with repositioning and warm blankets to no avail. Dr. Lange contacted in the procedure room to come and assess the patient as soon as he was done with the procedure he was in at the time. Dr. Lange arrived in the recovery area at 1033. He assessed the patient and gave a verbal order for vicodin 5mg/325mg x2 PO now. That was given at 1036. Patient informed by Dr. Lange that this happens time to time and that it will just take some time to return to his baseline. Patient continually monitored Q5 minutes the whole time he was in the recovery area. Pain relief began about 20-30 minutes after the oral vicodin was given. Patient's numbness in legs also gradually returned to his baseline and was completely at baseline at 1140. Patient kept in the recovery area to be evaluated by Dr. Lange again before discharge. Patient evaluated by Dr. Lange and patient was ok to be discharged at 1148.
== END 2022-07-08 11:48 | disposition home or self-care (01) ==
PROVIDERS: PCP Family Medicine; Referring Provider Physical Medicine & Rehabilitation; Visit Provider Physical Medicine & Rehabilitation
DX: M48.062 Spinal stenosis, lumbar region with neurogenic claudication (principal); M47.27 Other spondylosis with radiculopathy, lumbosacral region; M48.061 Spinal stenosis, lumbar region without neurogenic claudication
CPT/HCPCS: 62323; 99152; J0702; J1100; J2250; J3490

== ENCOUNTER → 2022-07-09 12:05 | Outpatient (CLI) | payer BC, SELFPAY ==
--- NOTE | 2022-07-09 | DI.CT.S_ITS ---
PROCEDURE: CT CHEST WO CON INDICATIONS: other chest pain TECHNIQUE: Noncontrast 5 mm thick sections acquired from the pulmonary apices to the posterior costophrenic angles. 1 mm lung window, 5 mm thick coronal and sagittal and 7 mm axial MIP reformats were then acquired. For radiation dose reduction, the following was used: automated exposure control, adjustment of mA and/or kV according to patient size. COMPARISON: None. FINDINGS: Image quality: Excellent. Lungs and pleura: No acute air space opacities. Note is made of mild posterior left upper lobe lung scarring and right posterolateral upper lobe mild lung and adjacent pleural scarring No pleural effusions or pneumothorax. Central and peripheral airways are patent and normal in caliber. Mediastinum: Heart size is normal. No pericardial effusion. No mediastinal adenopathy by size criteria. Thoracic aorta and central pulmonary arteries are normal in size. Esophagus is normal in caliber. No hiatal hernia. Bones and chest wall: No suspicious bony lesions. No vertebral body compression fractures. No axillary or supraclavicular adenopathy by size criteria. Thyroid gland appears normal . Abdomen: Visualized upper abdominal solid organs and bowel loops appear normal in the absence of contrast. IMPRESSION: Source of chest pain is not seen. Incidental note is made of several small areas of linear lung and pleural scarring at the upper lobes bilaterally, but no active inflammatory process is suspected. No trauma found. Dictated by: Jimi Briceno M.D. on 07/09/2022 at 13:54 Approved by: Jimi Briceno M.D. on 07/09/2022 at 13:57
== END ==
PROVIDERS: PCP Family Medicine; Referring Provider Family Medicine; Visit Provider Family Medicine
DX: R07.89 Other chest pain (principal); J98.4 Other disorders of lung
CPT/HCPCS: 71250

== ENCOUNTER 2022-07-13 23:03 | Emergency (ER) | payer BC, SELFPAY ==
[2022-07-13 23:10] VITALS: BP 114/77; PULSE 83; RESP 18; TEMP 36.5; O2SAT 95; BMI 25.9
--- NOTE | 2022-07-13 23:58 | PC.NURSE ---
pt had a spinal injection after which he had some difficulty, pt states since yesterday his BLE began hurting and the pain has continued to increase since, pain increases with weight bearing, pt was able to transfer from to stretcher but states he is having trouble standing without assistance
[2022-07-14] VITALS (9 sets, daily range): BP systolic 114–134; BP diastolic 60–92; PULSE 58–75; RESP 18; O2SAT 90–98
--- NOTE | 2022-07-14 00:36 | ED_ITS ---
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 Patient presents after having a spinal injection on 07/08/[address] Corrales. States he is had many of these over the past 20 years, many of them with Dr. Corrales. Notes this episode afterwards he had numbness down both legs and after about an hour that resolved and he regained both his numbness and strength. He states since then he had a little bit of discomfort at the injection site but has had increasing pain bilateral legs in the to both sides. Right slightly greater than left. He does appreciate some increased weakness he states if he wants to tie his shoe he has to lift up his leg to get his foot on a chair. He states that is different. He states if he moves quickly that can rapidly worsening pain to the point that he would fall. Patient states he has been able to walk. He denies any new urinary symptoms, no bowel or bladder incontinence. No dysuria, urgency or frequency. No diarrhea constipation. No fevers. No chest pain or shortness of breath. Patient has had nausea when his pain is quite intense. No vomiting. States he has been taking some tramadol he had from before which is not been helpful. Patient states he takes medication for reflux, hypertension, for urination, a water pill. He states he is had no prior back surgeries but had 10-20 drain injections over the past 20 years in his [facility]. Cholecystectomy, right knee surgery, he has a plate in his neck as well as his left ankle. No tobacco, alcohol or illicit. Patient does note anaphylactic type reaction to contrast dye several years ago. He is unsure if he is had any where he has been pretreated since then. Allergies to fluoroquinolones and nausea vomiting to Dilaudid. Patient's primary care is Dr. Sánchez. Patient also notes his approximately 10 weeks ago. Related Data Home Medications Medication Instructions Recorded Confirmed omeprazole 20 mg capsule,delayed 20 mg PO QDAY ##0 09/21/12 07/14/22 release acetaminophen 500 mg tablet 500 mg PO PRN ##0 09/22/12 07/14/22 (Tylenol Extra Strength) [MULTIVITAMIN] 1 tab PO QDAY ##0 10/04/12 07/14/22 ascorbic acid (vitamin C) 1,000 mg 1,000 mg PO DAILY 07/15/17 07/14/22 tablet,extended release lisinopril 20 mg tablet 20 mg PO TID #0 tabs 01/15/19 07/14/22 finasteride 5 mg tablet 5 mg PO DAILY 12/05/19 07/14/22 Lactobacillus acidophilus and cap PO 10/07/20 07/14/22 rhamnosus 15 billion cell capsule (Probiotic) cyanocobalamin (vitamin B-12) 5,000 mcg sublingual DAILY 10/07/20 07/14/22 5,000 mcg sublingual tablet (Vitamin B-12) magnesium 200 mg tablet 400 mg PO DAILY 10/07/20 07/14/22 melatonin 10 mg tablet 10 mg PO BEDTIME PRN Insomnia 10/28/20 07/14/22 furosemide 20 mg tablet 20 mg PO DAILY 10/05/21 07/14/22 hydrochlorothiazide 12.5 mg tablet 12.5 mg PO DAILY 10/05/21 07/14/22 tamsulosin 0.4 mg capsule 0.4 mg PO BEDTIME 02/22/22 07/14/22 hydroxyzine HCl 50 mg tablet 50 mg PO BEDTIME 07/14/22 07/14/22 Previous Rx's Medication Instructions Recorded gabapentin 300 mg capsule 300 mg PO .COMPLEX #90 caps 08/21/21 hyaluronate sodium, stabilized 60 60 mg (3 mL) intra-articular ONCE 06/23/22 mg/3 mL intra-articular syringe #3 mL (Durolane) tramadol 50 mg tablet 50 mg PO BID PRN pain #42 tabs 06/23/22 meloxicam 15 mg tablet 15 mg PO DAILY #30 tabs 07/13/22 cyclobenzaprine 10 mg tablet 10 mg PO BID PRN muscle spasm #60 07/14/22 tabs methylprednisolone 4 mg tablets in See Rx Instructions PO PER PKG DIR 07/14/22 a dose pack (Medrol (Piter)) radiculopathy #21 ea Allergies Allergy/AdvReac Type Severity Reaction Status Date / Time Iodinated Contrast Media Allergy Severe THROAT Verified 07/14/22 10:44 [IODINATED CONTRAST MEDIA - SWELLING, IV DYE] SHOCK ciprofloxacin [CIPROFLOXACIN] AdvReac Mild HALLUCINATIONS, Verified 07/14/22 10:44 INSOMNIA levofloxacin [LEVOFLOXACIN] AdvReac Mild HALLUCINATIONS, Verified 07/14/22 10:44 INSOMNIA hydromorphone [HYDROMORPHONE] AdvReac Unknown NAUSEA AND Verified 07/14/22 10:44 VOMITING Review of Systems <Maddi Perez DO - Last Filed: 07/15/22 05:51> Review of Systems ROS Unobtainable: All systems reviewed & are unremarkable except as noted in HPI and below Patient History <Maddi Perez DO - Last Filed: 07/15/22 05:51> Medical History Degenerative cervical spinal stenosis Facet arthropathy, lumbar Grief reaction Lumbosacral spondylosis with radiculopathy Surgical History History of total right knee replacement Social History Smoking Status: Former smoker Smoking Status: Former smoker alcohol intake frequency: a few times a month Substance Use Type: does not use Exam <Maddi Perez DO - Last Filed: 07/15/22 05:51> Narrative Exam Narrative: GENERAL: Alert and oriented x three, male in moderate distress. HEENT: Head normocephalic, atraumatic, EOMI, pupils reactive, face symmetric, moist mucous membranes NECK: Supple, full range of motion CARDIOVASCULAR: Regular rate and rhythm without murmurs, rubs or gallops. RESPIRATORY: Breath sounds equal bilaterally, no wheezes rales or rhonchi. ABDOMEN: Soft, nontender. Normoactive bowel sounds all 4 quadrants. No guarding or rebound, rigidity, no mass : No CVA tenderness BACK: No cervical, thoracic or lumbar vertebral point tenderness. Patient has normal range of motion but is very uncomfortable with movement. Increased pain with straight leg raise right greater than left. Patient's gait is [antalgic/normal]. Rectal exam is deferred. Muscle strength is 4/5 in lower extremities, 5/5 with dorsiflexion/plantar flexion. DTRs are 2/4 and lower extremities. Dorsalis pedis and tibialis pulses are 2+ and lower extremities. Sensation is intact in the lower extremities. EXTREMITIES: Normal range of motion, no clubbing or edema. Neurovascularly intact NEUROLOGICAL: Cranial nerves II through XII grossly intact. Moving all extremities SKIN: Warm, dry, no petechiae, no rashes or lesions. Initial Vital Signs Initial Vital Signs: Vital Signs Temperature 97.7 F 07/13/22 23:10 Pulse Rate 83 07/13/22 23:10 Respiratory Rate 18 07/13/22 23:10 Blood Pressure 114/77 07/13/22 23:10 Pulse Oximetry 95 07/13/22 23:10 Oxygen Delivery Method Room Air 07/13/22 23:10 <Lázaro Noriega MD - Last Filed: 07/17/22 12:51> Initial Vital Signs Initial Vital Signs: Vital Signs Temperature 97.7 F 07/13/22 23:10 Pulse Rate 83 07/13/22 23:10 Respiratory Rate 18 07/13/22 23:10 Blood Pressure 114/77 07/13/22 23:10 Pulse Oximetry 95 07/13/22 23:10 Oxygen Delivery Method Room Air 07/13/22 23:10 Course <Maddi Perez DO - Last Filed: 07/15/22 05:51> Orders Ordered: Discontinued Medications Diphenhydramine HCl (Diphenhydramine 50 Mg/Ml Vial) 50 mg IV NOW ONE Stop: 07/14/22 01:09 Last Admin: 07/14/22 01:19 Dose: 50 mg Documented By: FELIBERTO Methylprednisolone (Methylprednisolone 125 Mg/2 Ml Vial) 125 mg IV NOW ONE Stop: 07/14/22 01:09 Last Admin: 07/14/22 01:16 Dose: 125 mg Documented By: FELIBERTO Morphine Sulfate (Morphine 4 Mg/Ml Inj) 4 mg IV NOW ONE Stop: 07/14/22 01:02 Last Admin: 07/14/22 01:19 Dose: 4 mg Documented By: FELIBERTO Ondansetron HCl (Ondansetron 4 Mg/2 Ml Inj) 4 mg IV NOW ONE Stop: 07/14/22 01:02 Last Admin: 07/14/22 01:18 Dose: 4 mg Documented By: FELIBERTO Vital Signs Vital signs: Vital Signs - 8 hr 07/14/22 06:06 07/14/22 06:07 07/14/22 06:07 Pulse Rate 65 65 Respiratory Rate Blood Pressure 114/60 Pulse Oximetry 96 96 Oxygen Delivery Method 07/14/22 06:30 07/14/22 06:45 07/14/22 06:45 Pulse Rate 59 L 60 Respiratory Rate Blood Pressure 114/60 126/70 Pulse Oximetry 95 98 Oxygen Delivery Method 07/14/22 07:00 07/14/22 07:00 07/14/22 09:26 Pulse Rate 61 75 Respiratory Rate 18 Blood Pressure 130/72 127/92 H Pulse Oximetry 98 94 Oxygen Delivery Method Room Air <Lázaro Noriega MD - Last Filed: 07/17/22 12:51> Orders Ordered: Discontinued Medications Diphenhydramine HCl (Diphenhydramine 50 Mg/Ml Vial) 50 mg IV NOW ONE Stop: 07/14/22 01:09 Last Admin: 07/14/22 01:19 Dose: 50 mg Documented By: FELIBERTO Methylprednisolone (Methylprednisolone 125 Mg/2 Ml Vial) 125 mg IV NOW ONE Stop: 07/14/22 01:09 Last Admin: 07/14/22 01:16 Dose: 125 mg Documented By: FELIBERTO Morphine Sulfate (Morphine 4 Mg/Ml Inj) 4 mg IV NOW ONE Stop: 07/14/22 01:02 Last Admin: 07/14/22 01:19 Dose: 4 mg Documented By: FELIBERTO Ondansetron HCl (Ondansetron 4 Mg/2 Ml Inj) 4 mg IV NOW ONE Stop: 07/14/22 01:02 Last Admin: 07/14/22 01:18 Dose: 4 mg Documented By: FELIBERTO Vital Signs Vital signs: Vital Signs - 8 hr 07/14/22 06:06 07/14/22 06:07 07/14/22 06:07 Pulse Rate 65 65 Respiratory Rate Blood Pressure 114/60 Pulse Oximetry 96 96 Oxygen Delivery Method 07/14/22 06:30 07/14/22 06:45 07/14/22 06:45 Pulse Rate 59 L 60 Respiratory Rate Blood Pressure 114/60 126/70 Pulse Oximetry 95 98 Oxygen Delivery Method 07/14/22 07:00 07/14/22 07:00 07/14/22 09:26 Pulse Rate 61 75 Respiratory Rate 18 Blood Pressure 130/72 127/92 H Pulse Oximetry 98 94 Oxygen Delivery Method Room Air MDM - Extremity Injury (Lower) <Maddi Perez, DO - Last Filed: 07/15/22 05:51> Lab Data 07/14/22 01:10 07/14/22 01:10 Labs: Lab Results 07/14/22 07/14/22 Range/Units 01:10 01:10 WBC 7.2 (4.5-11.0) X10^3/uL RBC 3.41 L (4.5-5.9) X10^6/uL Hgb 10.7 L (13.5-17.5) g/dL Hct 31.5 L (41-53) % MCV 92.6 (80-100) fL MCH 31.5 (26-34) PG MCHC 34.0 (30-36) % RDW 13.0 (11.6-14.8) % Plt Count 214 (150-400) X10^3/uL Neut % (Auto) 65.2 (50-75) % Lymph % (Auto) 21.1 L (25-40) % [place] % (Auto) 9.0 (3-14) % Eos % (Auto) 4.3 H (2-4) % Baso % (Auto) 0.4 (0-2) % Neut # (Auto) 4700 (4605-1602) /uL Lymph # (Auto) 1500 (6313-7566) /uL [place] # (Auto) 600 (0-900) /uL Eos # (Auto) 300 (0-450) /uL Baso # (Auto) 0 (0-100) /uL Sodium 134 L (137-145) mmol/L Potassium 4.6 (3.4-5.1) mmol/L Chloride 102 (98-107) mmol/L Carbon Dioxide 30 (22-32) mmol/L BUN 34 H (9-20) mg/dL Creatinine 1.57 H (0.66-1.25) mg/dL Estimated GFR 43 L (>60) mL/min BUN/Creatinine Ratio 21.7 (6-22) Glucose 104 (80-110) mg/dL Calcium 9.3 (8.4-10.2) mg/dL Total Bilirubin 0.2 (0.2-1.3) mg/dL AST 18 (17-59) IU/L ALT 19 (<50) IU/L Alkaline Phosphatase 50 (38-126) U/L Total Protein 6.6 (6.3-8.2) g/dL Albumin 4.0 (3.5-5.0) g/dL Globulin 2.6 (1.7-4.1) g/dL Albumin/Globulin Ratio 1.5 (1.0-2.8) Procalcitonin 0.08 (<0.5) ng/mL Imaging Data CT Lumbar spine: Radiologist's Impression: Multilevel chronic degenerative disease arthropathy resulting in variable degrees of spinal canal and foraminal stenosis, prostate hypertrophy 0.5 0.7 cm diameter elevates the bladder 4. Nonobstructing nephrolithiasis. Surgically absent gallbladder. Hepatic cysts periods postsurgical changes in the descending. Diverticulosis. Patient has moderate to severe central canal stenosis at L5-S1, severe canal stenosis at L4-L5, moderate central canal at L3- L4, moderate stenosis L2-L3. MDM Narrative Medical decision making narrative: This is an [id number] with acute on chronic leg pain bilaterally. Patient states consistent with his pain that is typically present from his lumbar stenosis. Patient states he had epidural back injection on the 1st notes that he had significant weakness and numbness immediately afterwards that is slowly resolved over about an hour. He is had increasing pain since then. Much worsened typical. No new numbness or tingling but notes some increased weakness. No incontinence. But patient does note that trying to ambulate if he moves suddenly his pain can increase quite a bit and he almost falls. Patient has been taking his home tramadol. Plan for labs, CT imaging and pain management for evaluation for change. I did discuss with patient if CT imaging is negative or he still quite uncomfortable may need to hold him for MR this morning which will not be available until later in the morning. No red flag symptoms this moment that prompt transferred. Patient was able to ambulate to bathroom but with walker. Discussed with patient would like to hold for MRI once available later this morning. Patient signed out to Dr. Noriega while awaiting MRI and results. <Lázaro Noriega MD - Last Filed: 07/17/22 12:51> Lab Data Labs: Lab Results 07/14/22 07/14/22 Range/Units 01:10 01:10 WBC 7.2 (4.5-11.0) X10^3/uL RBC 3.41 L (4.5-5.9) X10^6/uL Hgb 10.7 L (13.5-17.5) g/dL Hct 31.5 L (41-53) % MCV 92.6 (80-100) fL MCH 31.5 (26-34) PG MCHC 34.0 (30-36) % RDW 13.0 (11.6-14.8) % Plt Count 214 (150-400) X10^3/uL Neut % (Auto) 65.2 (50-75) % Lymph % (Auto) 21.1 L (25-40) % [place] % (Auto) 9.0 (3-14) % Eos % (Auto) 4.3 H (2-4) % Baso % (Auto) 0.4 (0-2) % Neut # (Auto) 4700 (1168-4015) /uL Lymph # (Auto) 1500 (1815-4849) /uL [place] # (Auto) 600 (0-900) /uL Eos # (Auto) 300 (0-450) /uL Baso # (Auto) 0 (0-100) /uL Sodium 134 L (137-145) mmol/L Potassium 4.6 (3.4-5.1) mmol/L Chloride 102 (98-107) mmol/L Carbon Dioxide 30 (22-32) mmol/L BUN 34 H (9-20) mg/dL Creatinine 1.57 H (0.66-1.25) mg/dL Estimated GFR 43 L (>60) mL/min BUN/Creatinine Ratio 21.7 (6-22) Glucose 104 (80-110) mg/dL Calcium 9.3 (8.4-10.2) mg/dL Total Bilirubin 0.2 (0.2-1.3) mg/dL AST 18 (17-59) IU/L ALT 19 (<50) IU/L Alkaline Phosphatase 50 (38-126) U/L Total Protein 6.6 (6.3-8.2) g/dL Albumin 4.0 (3.5-5.0) g/dL Globulin 2.6 (1.7-4.1) g/dL Albumin/Globulin Ratio 1.5 (1.0-2.8) Procalcitonin 0.08 (<0.5) ng/mL Imaging Data MRI lumbar spine: Radiologist's Impression: [address] [address] Magnetic Resonance Report Signed Patient: Joesph Verdugo MR#: [id number] : 1935 Acct:[id number] Age/Sex: 87 / M Date of Service: 07/14/22 Loc: ED Accession Number: [id number] ?? Procedure: MR lumbar spine wo/w con Ordering Provider: Maddi Perez D.O. PROCEDURE:? MR LUMBAR SPINE WO/W CON ? INDICATIONS:? recent epidural injection, increased pain, weakness legs. ? TECHNIQUE:? Noncontrast sagittal T1 spin echo and T2 fast spin echo, sagittal STIR, axial T1 and T2 fast spin echo through the lumbar spine.? In cases with scoliosis, additional coronal T2 fast spin echo may be performed.? After the administration of contrast, sagittal and axial T1 spin echo with fat saturation through the lumbar spine.? ? COMPARISON:? [facility], MR, MR LUMBAR SPINE WO CON, 03/05/2021, 13:00.? [facility], CT, CT LUMBAR SPINE W CON, 07/14/2022, 1:46.? [facility], XA, PAIN L INTERLAMINAR/CAUDAL INJ, 07/08/2022, 9:47. ? FINDINGS:? Image quality:? Excellent.? ? Alignment and curvature:? There is normal bony alignment.? ? Marrow:? Marrow is of normal overall signal.? No acute vertebral body compression fractures.? No suspicious marrow enhancement.? ? Spinal cord:? Conus medullaris terminates at the L1 level.? Visualized spinal cord demonstrates normal signal, without suspicious enhancement.? Chronic mild prominence of the central canal of the lower thoracic cord is not significantly changed, and is felt to be a benign finding.? ? Paraspinous soft tissues:? No paravertebral masses or abnormal enhancement.? ? T12-L1:? Normal appearance.? ? L1-L2:? No significant change.? Chronic disc height loss.? Disc bulge.? Facet hypertrophy.? No canal stenosis.? Mild bilateral foraminal stenosis. ? L2-L3:? No significant change.? Chronic disc height loss.? Diffuse posterior disc plus osteophyte.? Facet and ligament hypertrophy.? Epidural lipomatosis.? Moderate canal stenosis.? Moderate to severe right foraminal narrowing with a degree of right f oraminal L2 nerve root impingement.? Mild left foraminal narrowing. ? L3-L4:? No significant change.? Posterior disc post osteophyte.? Facet and ligament hypertrophy.? Epidural lipomatosis.? Moderate canal stenosis.? Moderate right foraminal narrowing with mild flattening deformity on the exiting right L3 nerve root.? Mild to moderate left foraminal narrowing. ? L4-L5:? No significant change.? Diffuse posterior disc bulge.? Prominent bilateral facet and ligament hypertrophy.? Severe or high-grade canal stenosis.? Moderate bilateral foraminal narrowing. ? L5-S1:? No significant change.? Severe chronic disc height loss.? Posterior disc bulge.? Facet hypertrophy.? Datt-wl-[id number] canal stenosis.? Moderate to severe bilateral foraminal narrowing with bilateral foraminal L5 nerve root impingement. ? ? IMPRESSION:? ? 1. No epidural abscess identified. ? 2. Extensive degenerative change, as before, with canal stenosis from L2-L3 through L5-S1.? This is severe or high-grade at L4-L5. ? 3. Multilevel foraminal narrowing as described above, including bilateral moderate to severe foraminal narrowing at L5-S1.? Dictated by: Nic Dumas M.D. on 07/14/2022 at 8:18 ? ? Approved by: Nic Dumas M.D. on 07/14/2022 at 8:33 ? MDM Narrative Medical decision making narrative: This is an [id number] with acute on chronic leg pain bilaterally. Patient states consistent with his pain that is typically present from his lumbar stenosis. Patient states he had epidural back injection on the 1st notes that kelly thomas had significant weakness and numbness immediately afterwards that is slowly resolved over about an hour. He is had increasing pain since then. Much worsened typical. No new numbness or tingling but notes some increased weakness. No incontinence. But patient does note that trying to ambulate if he moves suddenly his pain can increase quite a bit and he almost falls. Patient has been taking his home tramadol. Plan for labs, CT imaging and pain management for evaluation for change. I did discuss with patient if CT imaging is negative or he still quite uncomfortable may need to hold him for MR this morning which will not be available until later in the morning. No red flag symptoms this moment that prompt transferred. Patient was able to ambulate to bathroom but with walker. Discussed with patient would like to hold for MRI once available later this morning. Patient signed out to Dr. Noriega while awaiting MRI and results. July 14, 2022 at 7:00 a.m.. I have received sign-out from Dr Perez, MRI results are pending. Patient sees Dr. Corrales for pain management for injections. No red flags regarding leg pain/back discomfort. After history and exam MRI lumbar spine CT lumbar spine CBC CMP MDM CC: Leg weakness/numbness Complicating co-morbidities: History of chronic back pain and injections Data collected from: Patient Medical records reviewed: July 08, [address] Corrales pain management for injection Differential considered: Includes but not limited to cauda equina cord compression spinal call stenosis, sciatica lumbar radiculopathy Exam documented above, pertinent findings include: Patient able to stand and walk with his walker. Lab Test results independently reviewed as above. Pertinent findings: WBC 7.2 sodium 134 potassium 4.6 creatinine 1.57 procalcitonin 0.08 Imaging studies independently reviewed: CT lumbar spine multilevel degenerative disc disease. Consider MRI MR lumbar spine no epidural abscess identified. Extensive degenerative changes as before, canal stenosis L2-L3 through L5-S1. Severe high-grade L4-L5. Consultations: 10:00 a.m.. I spoke with Dr. Corrales. He would like to see patient in his office now. I spoke with orthospine Dr. Brown, patient can follow up in the office regarding lumbar spine MRI results. Treatments: Morphine Re-evaluations: 9:30 a.m.. Patient has been up and using his walker in the hallway. Updated him results of laboratory studies and imaging and MRI. At this time awaiting callback from Dr. Corrales, pain management as well as a call to ortho spine Dr. Brown 10:05 a.m.. Spoke with patient and he agrees to see Dr. Corrales now in the office. Discussion: Appropriate for discharge. Patient will go directly to Dr. Corrales office now. Patient can follow up with ortho spine outpatient regarding MRI findings. Patient denies any bowel or bladder incontinence or retention. No red flags. Return precautions reviewed with him. He desires d ischarge to go to the office now Diagnosis: Leg cramps Discharge Plan Departure Patient Disposition: Home Clinical Impression: Cramp in muscle Instructions: DI for Muscle Spasm Activity Restrictions/Additional Instructions: Please go directly to Dr. Lange's office now. He is expecting you. Please call provided ortho spine office for follow up regarding MRI results of your lower back. Return if worse if any questions or concerns. Prescriptions: No Action omeprazole 20 MG capsule,delayed release(DR/EC) 20 mg PO QDAY Qty: 0 acetaminophen [Tylenol Extra Strength] 500 MG tablet 500 mg PO PRN Qty: 0 [MULTIVITAMIN] 1 tab PO QDAY Qty: 0 lisinopril 20 mg tablet 20 mg PO TID Qty: 0 gabapentin 300 mg capsule 300 mg PO .COMPLEX Qty: 90 2RF Hold Instructions: Home Medication placed on hold at Doctor's office Rx Instructions: 1-2 PO Tid to begin at HS and titrate to pain relief meloxicam 15 mg tablet 15 mg PO DAILY Qty: 30 3RF magnesium 200 mg Tablet 400 mg PO DAILY cyanocobalamin (vitamin B-12) [Vitamin B-12] 5,000 mcg Tablet, Sublingual 5,000 mcg SUBLINGUAL DAILY Probiotic 15 billion cell Capsule PO melatonin 10 mg Tablet 10 mg PO BEDTIME PRN (Reason: Insomnia) finasteride 5 mg tablet 5 mg PO DAILY tamsulosin 0.4 mg capsule 0.4 mg PO BEDTIME tramadol 50 mg tablet 50 mg PO BID PRN (Reason: pain) Qty: 42 2RF Durolane 60 mg/3 mL syringe 60 mg intra-articular ONCE Qty: 3 0RF ascorbic acid (vitamin C) 1,000 mg tablet extended release 1,000 mg PO DAILY hydrochlorothiazide 12.5 mg tablet 12.5 mg PO DAILY furosemide 20 mg tablet 20 mg PO DAILY Patient Comments: TAKE 1 TABLET BY MOUTH EVERY MORNING hydroxyzine HCl 50 mg tablet 50 mg PO BEDTIME methylprednisolone [Medrol (Piter)] 4 mg tablets,dose pack See Rx Instructions PO PER PKG DIR Qty: 21 0RF Rx Instructions: PO PER PKG DIR cyclobenzaprine 10 mg tablet 10 mg PO BID PRN (Reason: muscle spasm) Qty: 60 1RF Referrals: Beba,Dawei, MD [Physician] - Jason Sánchez MD [Primary Care Provider] - Stand Alone Forms: Patient Portal/API
--- NOTE | 2022-07-14 01:01 | DI.CT.S_ITS ---
PROCEDURE: CT LUMBAR SPINE W CON INDICATIONS: leg pain, increased after back injection TECHNIQUE: After the administration of intravenous Isovue contrast, 3 mm thick sections acquired through the levels of interest. Sagittal and coronal reformats were then constructed. For radiation dose reduction, the following was used: automated exposure control. COMPARISON: [facility], CT, CT KIDNEY URETER BLADDER (KUB), 09/11/2019, 11:34. [facility], MR, MR LUMBAR SPINE WO CON, 03/05/2021, 13:00. [facility], MR, L-SPINE WITHOUT CONTRAST, 10/14/2016, 14:28. FINDINGS: Image quality: Excellent. Bones: No fracture or dislocation. There is severe degenerative disc disease at L1-L2, L2-L3, L3-L4, L4-L5 and L5-S1 with loss of disc space, endplate sclerosis and disc osteophyte complex. There is bilateral facet arthropathy most pronounced and moderate at L4-L5 and L5-S1. There is moderate central canal stenosis at L2-L3, L3-L4 and L4-L5, and mild central canal stenosis at L1-L2 and L5-S1. There is [id number] bilateral foraminal stenosis throughout the lumbar spine. Soft tissues: No paravertebral hematoma or mass. Diverticulosis without diverticulitis. Large amount of stool in colon. Nonobstructive renal calculi bilaterally. Enlargement of prostate. IMPRESSION: 1. Multilevel degenerative disc disease and facet arthropathy in lumbar spine causing moderate central canal and foraminal stenosis. Consider MRI for further evaluation. 2. Bilateral nonobstructive renal calculi. 3. Enlargement of prostate. No significant discrepancy with the mold shifter radiology preliminary report. Dictated by: Washington Cabral M.D. on 07/14/2022 at 7:59 Approved by: Washington Cabral M.D. on 07/14/2022 at 8:04
[2022-07-14] MEDS: methylPREDNISolone 125 MG/2 ML VIAL IV (01:16)
[2022-07-14] MEDS: ONDANSETRON 4 MG/2 ML INJ IV (01:18)
[2022-07-14] MEDS: diphenhydrAMINE 50 MG/ML VIAL IV (01:19)
[2022-07-14] MEDS: MORPHINE 4 MG/ML INJ IV (01:19)
[2022-07-14 01:23] LABS: Add Manual Diff / Slide Review NO; Basophils Absolute Auto 0 /uL (0-100); Basophils Percent Auto 0.4 % (0-2); Eosinophils Absolute Auto 300 /uL (0-450); Eosinophils Percent Auto 4.3 % (2-4); Hematocrit 31.5 % (41-53); Hemoglobin 10.7 g/dL (13.5-17.5); Lymphocytes Absolute Auto 1500 /uL (1100-4500); Lymphocytes Percent Auto 21.1 % (25-40); Mean Corpuscular Hemoglobin 31.5 PG (26-34); Mean Corpuscular Volume 92.6 fL (80-100); Monocytes Absolute Auto 600 /uL (0-900); Neutrophils Absolute Auto 4700 /uL (1500-7000); Neutrophils Percent Auto 65.2 % (50-75); Platelet Count 214 X10^3/uL (150-400); Red Blood Cell Count 3.41 X10^6/uL (4.5-5.9); White Blood Cell Count 7.2 X10^3/uL (4.5-11.0)
[2022-07-14 01:34] LABS: Alanine Aminotransferase 19 IU/L (<50); Albumin Globulin Ratio 1.5 (1.0-2.8); Alkaline Phosphatase 50 U/L (38-126); Aspartate Aminotransferase 18 IU/L (17-59); BUN Creatinine Ratio 21.7 (6-22); Bilirubin Total 0.2 mg/dL (0.2-1.3); Blood Urea Nitrogen 34 mg/dL (9-20); Calcium 9.3 mg/dL (8.4-10.2); Carbon Dioxide 30 mmol/L (22-32); Chloride 102 mmol/L (98-107); Estimated Glomerular Filt Rate 43 mL/min (>60); Globulin 2.6 g/dL (1.7-4.1); Glucose 104 mg/dL (80-110); HEMOLYSIS < 15 (0-50); Potassium 4.6 mmol/L (3.4-5.1); Sodium 134 mmol/L (137-145); Total Protein 6.6 g/dL (6.3-8.2)
[2022-07-14 01:50] LABS: Procalcitonin 0.08 ng/mL (<0.5)
--- NOTE | 2022-07-14 07:36 | DI.MRI.S_ITS ---
PROCEDURE: MR LUMBAR SPINE WO/W CON INDICATIONS: recent epidural injection, increased pain, weakness legs. TECHNIQUE: Noncontrast sagittal T1 spin echo and T2 fast spin echo, sagittal STIR, axial T1 and T2 fast spin echo through the lumbar spine. In cases with scoliosis, additional coronal T2 fast spin echo may be performed. After the administration of contrast, sagittal and axial T1 spin echo with fat saturation through the lumbar spine. COMPARISON: [facility], MR, MR LUMBAR SPINE WO CON, 03/05/2021, 13:00. [facility], CT, CT LUMBAR SPINE W CON, 07/14/2022, 1:46. [facility], XA, PAIN L INTERLAMINAR/CAUDAL INJ, 07/08/2022, 9:47. FINDINGS: Image quality: Excellent. Alignment and curvature: There is normal bony alignment. Marrow: Marrow is of normal overall signal. No acute vertebral body compression fractures. No suspicious marrow enhancement. Spinal cord: Conus medullaris terminates at the L1 level. Visualized spinal cord demonstrates normal signal, without suspicious enhancement. Chronic mild prominence of the central canal of the lower thoracic cord is not significantly changed, and is felt to be a benign finding. Paraspinous soft tissues: No paravertebral masses or abnormal enhancement. T12-L1: Normal appearance. L1-L2: No significant change. Chronic disc height loss. Disc bulge. Facet hypertrophy. No canal stenosis. Mild bilateral foraminal stenosis. L2-L3: No significant change. Chronic disc height loss. Diffuse posterior disc plus osteophyte. Facet and ligament hypertrophy. Epidural lipomatosis. Moderate canal stenosis. Moderate to severe right foraminal narrowing with a degree of right foraminal L2 nerve root impingement. Mild left foraminal narrowing. L3-L4: No significant change. Posterior disc post osteophyte. Facet and ligament hypertrophy. Epidural lipomatosis. Moderate canal stenosis. Moderate right foraminal narrowing with mild flattening deformity on the exiting right L3 nerve root. Mild to moderate left foraminal narrowing. L4-L5: No significant change. Diffuse posterior disc bulge. Prominent bilateral facet and ligament hypertrophy. Severe or high-grade canal stenosis. Moderate bilateral foraminal narrowing. L5-S1: No significant change. Severe chronic disc height loss. Posterior disc bulge. Facet hypertrophy. Drpa-fq-gouodosj canal stenosis. Moderate to severe bilateral foraminal narrowing with bilateral foraminal L5 nerve root impingement. IMPRESSION: 1. No epidural abscess identified. 2. Extensive degenerative change, as before, with canal stenosis from L2-L3 through L5-S1. This is severe or high-grade at L4-L5. 3. Multilevel foraminal narrowing as described above, including bilateral moderate to severe foraminal narrowing at L5-S1. Dictated by: Nic Dumas M.D. on 07/14/2022 at 8:18 Approved by: Nic Dumas M.D. on 07/14/2022 at 8:33
== END 2022-07-14 10:07 | disposition home or self-care (01) ==
PROVIDERS: Emergency Medicine; Emergency Provider Emergency Medicine; PCP Family Medicine
DX: R25.2 Cramp and spasm (principal); R20.0 Anesthesia of skin
CPT/HCPCS: 36415; 72132; 72158; 80053; 84145; 85025; 87040; 96374; 96375; 99284; A9579; J1200; J2270; J2405; J2930; Q9967

== ENCOUNTER → 2022-08-18 10:07 | Outpatient (CLI) | payer BC, SELFPAY ==
--- NOTE | 2022-08-18 | DI.NM.S_ITS ---
PROCEDURE: NM CELINA PERF SPECT R&S PHARM Rest and pharmacological stress myocardial perfusion SPECT with gated imaging and ejection fraction RADIOPHARMACEUTICAL: 11.6 mCi Tc-99m tetrafosmin IV at rest and 26.6 mCi Tc-99m tetrafosmin IV at peak effect of pharmacological stress. Lie-wdb-jnsgxcir was performed. INDICATIONS: Other chest pain TECHNIQUE: Radiopharmaceutical was injected at peak stress test, and also at rest. SPECT images were obtained. SPECT myocardial perfusion images were displayed in short axis, horizontal long axis, and vertical long axis views. Gated images were reviewed using [facility] software. COMPARISON: None. CARDIAC STRESS: A pharmacologic stress test was performed under the supervision of an attending staff, using an infusion of lexiscan 0.4mg IV X1. Hemodynamic data: There is normal blood pressure and heart rate response to pharmacologic stress. Symptoms: The patient denied anginal chest pain. Aminophylline: none EKG: Resting ECG showed sinus rhythm with RBBB. No diagnostic changes of ischemia; no ectopy. FINDINGS: Raw data: There is good myocardial uptake of radiotracer. No significant motion artifacts. Cwms-xe-wihvy ratio is 0.24 (normal is less than 0.38 for tetrafosmin tracer). Left ventricle function: Gated images demonstrate normal left ventricular wall thickening. No segmental wall motion abnormalities. No transient ischemic dilation; TID is 1.06 (normal less than 1.3). Left ventricle resting end diastolic volume is 100 mL. Left ventricle stress ejection fraction is 80%; normal range is above 45%. Myocardial perfusion: There is normal distribution of activity in the right and left ventricular myocardium. No fixed or reversible perfusion defects. IMPRESSION: Low risk, normal pharmaceutical nuclear stress test 1) No perfusion evidence of ischemia or infarction. 2) Normal left ventricular size, wall motion, and systolic function (EF posty stress 80%). 3) No ST changes with lexiscan. 4) No angina during the study. 5) No prior nuclear stress test available for comparison. Dictated by: Teofilo Hamm MD on 08/19/2022 at 13:07 Approved by: Teofilo Hamm MD on 08/19/2022 at 13:09
== END ==
PROVIDERS: PCP Family Medicine; Referring Provider Family Medicine; Visit Provider Family Medicine
DX: R07.89 Other chest pain (principal)
CPT/HCPCS: 78452; 93017; A9502; J2785

== ENCOUNTER → 2022-12-22 13:31 | Outpatient (CLI) | payer BC, SELFPAY ==
--- NOTE | 2022-12-22 | DI.CT.S_ITS ---
PROCEDURE: CT SINUS SCREEN WO CON INDICATIONS: Other chronic sinusitis TECHNIQUE: Noncontrast 3.0 mm axial images acquired from the frontal sinuses to the mid-sella, with coronal and sagittal reformats. For radiation dose reduction, the following was used: automated exposure control, adjustment of mA and/or kV according to patient size. COMPARISON: None. FINDINGS: Image quality: Excellent. Maxillary Sinuses: Left maxillary sinus retention cyst measures 1.1 cm and smaller right consists Ethmoid Air Cells: No bony remodeling or destruction. Sinuses are clear. Sphenoid Sinuses: No bony remodeling or destruction. Sinuses are clear. Frontal Sinuses: No bony remodeling or destruction. Sinuses are clear. Ostiomeatal Complexes: Ostiomeatal complexes are patent. No Mauro cells. Miscellaneous: Visualized intra-orbital contents are normal. No any bullosa or paradoxical turbinate curvature. No nasal septal deviation. IMPRESSION: Bilateral maxillary sinus retention cysts. Otherwise unremarkable. Approved by: Thiago Urban M.D. on 12/22/2022 at 18:00
== END ==
PROVIDERS: PCP Family Medicine; Referring Provider Family Medicine; Visit Provider Family Medicine
DX: J32.8 Other chronic sinusitis (principal); J34.1 Cyst and mucocele of nose and nasal sinus
CPT/HCPCS: 70486

== ENCOUNTER → 2022-12-27 09:37 | Outpatient (CLI) | payer BC, SELFPAY ==
--- NOTE | 2022-12-27 | DI.RAD.S_ITS ---
PROCEDURE: FL BARIUM SWALLOW INDICATIONS: DYSPHAGIA/LARYNGOPHARYNGEAL REFLUX COMPARISON: None. FINDINGS: Function: No aspiration. There is normal esophageal peristalsis in the upright position. Mild delay of the barium tablet through the gastroesophageal junction. Morphology: Air-contrast images demonstrate normal mucosal morphology. Single contrast views show no esophageal strictures, extrinsic mass effects, or diverticula. Limited images of the stomach demonstrate normal appearance. IMPRESSION: No aspiration. Mild delay of the barium tablet through the gastroesophageal junction. Please see separately dictated speech pathologist's report. Dictated by: Emeka Menendez M.D. on 12/27/2022 at 12:30 Approved by: Emeka Menendez M.D. on 12/27/2022 at 12:31
--- NOTE | 2022-12-27 15:19 | ST.SWALLOW ---
Visit Care Team Role Provider Type Jason Sánchez MD Primary Care Provider Physician Specialty: Family Practice Address: [address] [place] [address], [address], [place], [address] Email: [email or web address] Azael Pollack MD Attending Provider Physician Referring Provider Specialty: Ear, Nose, Throat Address: [address] [place] [address], [id number] Email: [email or web address] Modified Barium Swallow Study [employer] REPRESENTATIVE Modified Barium Swallow Study Start: 12/27/22 14:00 Freq: Status: Active Protocol: Document 12/27/22 14:01 JUAN J (Rec: 12/27/22 14:07 [id number]) Modified Barium Swallow Study Total Time Visit Start Time 10:15 Visit Stop Time 11:45 Total Visit Minutes [address] Pollack Reason for Referral dysphagia Setting Setting Outpatient Care Patient Information Identification Type Name,Date of Patient History Pt was seen for a Modified Barium Swallow Study. P is an 87 year old male who presented with c/o PND that has been ongoing for years. Pt has seen 3 ENTs, his most recent visit with Dr. Pollack, who referred him for this MBSS. Pt noted that his PND is frequent and fills his throat causing him to clear his throat often. 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 Pt described his PND filling his throat and causing him to have a rough voice. Once he clears his throat, his voice returns to normal. He noted that he began to notice the above symptoms following the ACDF surgery and wondered if there may be scar tissue that is related to his symptoms. Subjective Observations Pt was seated in the fluoroscopy chair with directions and procedures described for him. Pt indicated he understood and agreed to proceed. Patient Positioning Position View Lat-A/P Imaging Lateral View Textures Administered Trials Presented Thin Liquid via Spoon (IDDSI 0 ),Thin Liquid via Cup (IDDSI 0 ),Extremely Thick Liquid via Spoon (IDDSI 4),Regular (IDDSI 7) Barium Tablet Yes The IDDSI Framework Protocol: IDDSI.1 Oral Impairment Source: The Modified Barium Swallow Impairment Profile (MBSImP??) Lip Closure No labial escape Tongue Control During Bolus Hold Cohesive bolus between tongue to palatal seal Bolus Transport/Lingual Motion Brisk tongue motion Oral Residue Residue collection on oral structures Location Tongue,Lateral sulci Initiation of Pharyngeal Swallow Bolus head in valleculae Additional Oral Impairment Observations OME and DKS were observed to be WNL. Dention was natural with lower molars missing. Mastication was noted to have an organized, rotary chew pattern. Bolus formation, control and AP transition were WNL. Pharyngeal Impairment Source: The Modified Barium Swallow Impairment Profile (MBSImP??) Soft Palate Elevation No bolus between soft palate & pharyngeal wall Laryngeal Elevation Part.sup.move.thyroid cart/ part.approx.arytenoids to epiglot.petiole Anterior Hyoid Excursion Partial anterior movement Epiglottic Movement Partial inversion Laryngeal Vestibular Closure Incomplete; narrow column air/ contrast in laryngeal vestibule Pharyngeal Stripping Wave Present - diminished Pharyngoesophageal Segment Opening Partial distention/partial duration; partial obstruction of flow Tongue Base Retraction Wide column of contrast/air betwn tongue base & post. pharyngeal wall Pharyngeal Residue Collection of residue within/ on pharyngeal structures Location Valleculae Additional Pharyngeal Impairment ACDF hardware noted between C3 Observations -C7. Tongue base weakness was observed to negatively impact hyolaryngeal elevation and movement and epiglottic inversion. There appeared to be diminished extension and duration of the PES as well. The epiglottic position varied from horizontal with the tip curled against the posterior pharyngeal wall to fully inverted. Flash penetration into the laryngeal vestibule was observed (PAS3 - penetrates larynx, contacts folds, no visible laryngeal vestibule) indicating mild weakness of the epiglottic seal. No aspiration was observed. Pharyngeal residue was observed at the base of tongue and within the valeculla. A cued cough resulted in clearing a majority of pooled contrast. A/P View Textures Administered Trials Presented Thin Liquid via Spoon (IDDSI 0 ) The IDDSI Framework Protocol: IDDSI.1 A/P View Observations Pharyngeal Contraction Complete Esophageal Clearance Upright Position Complete clearance; esophageal coating Additional A-P Observations Esophageal phase of swallowing was noted to be WFL. The barium tablet was delayed at the GE junction. It eventually entered the stomach. Clinical Impressions Findings Pt's swallowing was noted to be WFL. Flash penetration is typically observed with elderly patients. However, as the pt's primary complaint is a build up of phlegm and a wet vocal quality, it appears that as the laryngeal seal by the epiglottis is weak, secretions may be building within the larynx and when the pt begins speaking his voice has a wet quality. Additionally, this would be related to pt's frequent throat clearing This may be due to diminished pharyngeal sensation and/or muscle strength as a result of the ACDF surgery. Swallowing therapy to increase base of tongue strength may be beneficial for this pt. Rehabilitation Potential Good Patient Appropriate for Therapy Yes Recommendations Diet Comments No change in diet is recommended. Aspiration Precautions Recommended Precautions Double Swallow Treatment Plan Therapy Recommendations Outpatient Speech Therapy Therapy Strategy Recommendations Sitting Upright (90 deg), Double Swallow
== END ==
PROVIDERS: PCP Family Medicine; Referring Provider Otolaryngology; Visit Provider Otolaryngology
DX: R13.10 Dysphagia, unspecified (principal); K21.9 Gastro-esophageal reflux disease without esophagitis
CPT/HCPCS: 74220; 92611

== ENCOUNTER → 2023-03-15 14:44 | Outpatient (CLI) | payer BC, SELFPAY ==
--- NOTE | 2023-03-15 | DI.RAD.S_ITS ---
PROCEDURE: XR ABDOMEN 1V INDICATIONS: BILATERAL KIDNEY STONE TECHNIQUE: One view of the abdomen acquired. COMPARISON: [facility], , ABDOMEN 1 VIEW, 03/23/2010, 13:07. FINDINGS: Surgical changes and devices: Surgical clips are seen in gallbladder fossa. Bowel: Large amount of fecal matter is seen throughout the colon. No gross peritoneal free air. Soft tissues: Numerous phleboliths are noted in lower pelvis. Previously described multiple small calcifications in the region of right kidney are not definitely seen on the current study. Visualized solid organ contours appear normal in size. Bones: No suspicious bony lesions. IMPRESSION: Significant constipation. Patient's known possible right-sided renal calcifications are not definitely seen on the current study. No definite left renal calcifications are seen. Numerous phleboliths are seen in lower pelvis. Dictated by: Bib Brown M.D. on 03/15/2023 at 16:54 Approved by: Bib Brown M.D. on 03/15/2023 at 16:56
== END ==
LOC: RAD 14:51
PROVIDERS: PCP Family Medicine; Referring Provider Urology; Visit Provider Urology
DX: N20.0 Calculus of kidney (principal); K59.00 Constipation, unspecified
CPT/HCPCS: 74018

== ENCOUNTER 2023-07-28 13:51 | Outpatient (CLI) | payer BC, SELFPAY ==
[2023-07-28] VITALS (8 sets, daily range): BP systolic 117–163; BP diastolic 59–103; PULSE 70–78; RESP 11–19; TEMP 36.6; O2SAT 95–100
--- NOTE | 2023-07-28 14:30 | DI.RAD.S_ITS ---
PROCEDURE: PAIN L INTERLAMINAR/CAUDAL INJ INDICATIONS: Para Left L5/S1 TL STEFANIA COMPARISON: [facility], , PAIN L INTERLAMINAR/CAUDAL INJ, 07/08/2022, 9:47. FINDINGS: Fluoroscopic spot filming was performed to verify placement of spinal needles at the left L5-S1 level(s), as labeled on the films. Appropriate location(s) of the needle tip(s) was confirmed by injection of iodinated contrast. IMPRESSION: Intra procedural examination demonstrating appropriate positions of the needles. Dictated by: Israel De Luna M.D. on 07/28/2023 at 16:35 Approved by: Israel De Luna M.D. on 07/28/2023 at 16:36
[2023-07-28] MEDS: MIDAZOLAM 2 MG/2 ML VIAL IV (15:20)
[2023-07-28] MEDS: BUPIVACAINE 0.25% (PF) VIAL 2 ML INJ (15:22)
[2023-07-28] MEDS: DEXAMETHASONE 10 MG/ML VIAL INJ (15:22)
[2023-07-28] MEDS: BETAMETHASONE 30 MG/5 ML MDV 6 MG INJ (15:22)
[2023-07-28] MEDS: iopamidoL 15 ML VIAL 3 ML INJ (15:23)
--- NOTE | 2023-07-28 15:33 | P.PCN_ITS ---
Date/Time/Diagnoses Date of procedure: 07/28/23 Time of procedure: 15:33 Pre-procedure diagnosis: 1. HNP WITH RADICULAR FEATURES, 2. MULTILEVEL CENTRAL STENOSIS, Post-procedure diagnosis: same Procedure Notes Procedure: 1. FLUOROSCOPICALLY GUIDED CONTRAST CONTROLLED INTERLAMINAR EPIDURAL STEROID INJECTION - L5/S1 Indications: Joesph is referred by Dr. Sánchez for treatment of Bilateral Foraminal Stenosis L>R LE symptoms. Physician: Jason Lange Total Fluoroscopy time (seconds): 7 Total sedation minutes: 6 Complications: none Procedure in detail & Post-procedure care: FINDINGS Multilevel Central Spinal Stenosis with Nerve Root Compression DESCRIPTION OF PROCEDURE Fluoroscopically guided, contrast-controlled L5/S1 translaminar epidural steroid injection. Following review of allergy and review of potential side effects and complications, including, but not necessarily limited to, infection, allergic reaction, local tissue breakdown, temporary as well as permanent nerve injury, paralysis, stroke and possible , the patient indicated that the patient understood and agreed to proceed. An informed consent document was signed by the patient, witnessed by a nurse, and placed in the patient's chart. Additionally, other treatment options including modalities, medications, and physical therapy were reviewed with the patient. After review of previous anaesthesic history and IV conscious sedation the patient was deemed safe to proceed with today?s procedure with IV conscious sedation as ASA class II designation. Safety time-out was performed to confirm patient ID, procedure to be performed and site of procedure. IV sedation was accomplished with a combination of 2mg of Versed administered by the RN after DO order, titrated to patient comfort during the course of the procedure while the patient remained responsive to all verbal commands. In the prone position, following sterile prep and drape of the lumbar region, the L5/S1 translaminar space was identified fluoroscopically. The skin was anesthetized via a 25-gauge, 1.5-inch needle with 1% lidocaine solution. At this point, a 22-gauge short bevel spinal needle was atraumatically introduced and advanced under fluoroscopic guidance into the region of the L5/S1 translaminar space. Depth was confirmed on lateral view. Radiological data, including multiple fluoroscopic views of the lumbar spine, reveal a spinal needle at the L5/S1 translaminar space. Lateral views then show placement of the needle in the epidural space. Subsequent views show contrast material flowing superiorly and inferiorly in the epidural space. No vascular or intrathecal uptake is observed. At this point, using loss of resistance technique with saline and air, the epidural space was entered. This was confirmed following negative aspiration with injection of approximately 1.5cc of Isovue 200, showing excellent epidural flow without vascular or intrathecal uptake. At this point, 1 cc of 1% lidocain e solution combined with 2cc or 10mg of dexamethasone and 6mg of betamethasone was injected without incident. The patent tolerated the procedure without signs of symptoms of complications prior to transfer to the recovery area for further monitoring. The patient was then transferred to the recovery area where they were observed for an appropriate period of time after the injection. The patient reported a VAS score of 6 prior to the procedure and a post-procedure VAS of 0. POST OP INSTRUCTIONS The patient was provided a Pain Log to continue to record their response to the target-specific procedure prior to follow-up visit with their referring physician. Additionally, specific post-injection care instructions and a contact number to our office were provided if concerns arise regarding possible complications associated with the procedure are suspected.
== END 2023-07-28 15:57 | disposition home or self-care (01) ==
PROVIDERS: PCP Family Medicine; Referring Provider Physical Medicine & Rehabilitation; Visit Provider Physical Medicine & Rehabilitation
DX: M51.17 Intervertebral disc disorders with radiculopathy, lumbosacral region (principal); M48.07 Spinal stenosis, lumbosacral region
CPT/HCPCS: 62323; J0702; J1100; J2250; J3490

== ENCOUNTER → 2023-11-03 09:55 | Outpatient (CLI) | payer BC, SELFPAY | PROVIDERS: Family Provider Family Medicine; PCP Family Medicine; Referring Provider Family Medicine; Visit Provider Family Medicine | DX: R20.0 Anesthesia of skin (principal); R20.2 Paresthesia of skin | CPT/HCPCS: 95886; 95909 ==

== ENCOUNTER → 2023-12-29 13:08 | Outpatient (CLI) | payer BC, SELFPAY ==
--- NOTE | 2023-12-29 13:09 | DI.US.S_ITS ---
PROCEDURE: US SOFT TISSUE HEAD AND NECK INDICATIONS: Mass of soft tissue of neck TECHNIQUE: Real-time scanning was performed of the neck region of interest, with image documentation. COMPARISON: None. FINDINGS: Along the dorsal left side of the neck at the area of concern, there is a 2.8 x 0.5 x 2.5 cm subcutaneous isoechoic, ovoid mass without significant internal vascularity. 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 Percutaneous sampling recommended for confirmation. Dictated by: Da Montilla M.D. on 12/29/2023 at 17:34 Approved by: Da Montilla M.D. on 12/29/2023 at 17:35
== END ==
PROVIDERS: Family Provider Family Medicine; PCP Family Medicine; Referring Provider Family Medicine; Visit Provider Family Medicine
DX: M79.89 Other specified soft tissue disorders (principal); R22.1 Localized swelling, mass and lump, neck
CPT/HCPCS: 76536

== ENCOUNTER 2024-01-03 13:55 | Outpatient (CLI) | payer BC, SELFPAY ==
[2024-01-03] VITALS (7 sets, daily range): BP systolic 133–186; BP diastolic 66–95; PULSE 64–72; RESP 15–18; TEMP 36.3; O2SAT 95–100
--- NOTE | 2024-01-03 13:55 | DI.RAD.S_ITS ---
PROCEDURE: PAIN L INTERLAMINAR/CAUDAL INJ INDICATIONS: L5/S1 TL STEFANIA COMPARISON: [facility], , PAIN L INTERLAMINAR/CAUDAL INJ, 07/28/2023, 15:22. FINDINGS: Fluoroscopic spot filming was performed to verify placement of spinal needles at the L5-S1 level(s), as labeled on the films. Appropriate location(s) of the needle tip(s) was confirmed by injection of iodinated contrast. IMPRESSION: L5-S1 injection, please see procedure note for full details Dictated by: Amauri Perdomo M.D. on 01/03/2024 at 20:35 Approved by: Amauri Perdomo M.D. on 01/03/2024 at 20:36
[2024-01-03] MEDS: MIDAZOLAM 2 MG/2 ML VIAL IV (15:41)
[2024-01-03] MEDS: BETAMETHASONE 30 MG/5 ML MDV 12 MG INJ (15:45)
[2024-01-03] MEDS: iopamidoL 15 ML VIAL 3 ML INJ (15:45)
[2024-01-03] MEDS: DEXAMETHASONE 10 MG/ML VIAL INJ (15:46)
[2024-01-03] MEDS: BUPIVACAINE 0.25% (PF) VIAL 2 ML INJ (15:46)
--- NOTE | 2024-01-03 15:56 | P.PCN_ITS ---
Date/Time/Diagnoses Date of procedure: 01/03/24 Time of procedure: 15:56 Pre-procedure diagnosis: 1. HNP WITH RADICULAR FEATURES, 2. MULTILEVEL CENTRAL STENOSIS, Post-procedure diagnosis: same Procedure Notes Procedure: 1. FLUOROSCOPICALLY GUIDED CONTRAST CONTROLLED INTERLAMINAR EPIDURAL STEROID INJECTION - L5/S1 Indications: Joesph is referred by Dr. Sánchez for treatment of Bilateral Foraminal Stenosis L>R LE symptoms. Physician: Jason Lange Total Fluoroscopy time (seconds): 8 Total sedation minutes: 10 Complications: none Procedure in detail & Post-procedure care: FINDINGS Multilevel Central Spinal Stenosis with Nerve Root Compression DESCRIPTION OF PROCEDURE Fluoroscopically guided, contrast-controlled L5/S1 translaminar epidural steroid injection. Following review of allergy and review of potential side effects and complications, including, but not necessarily limited to, infection, allergic reaction, local tissue breakdown, temporary as well as permanent nerve injury, paralysis, stroke and possible , the patient indicated that the patient understood and agreed to proceed. An informed consent document was signed by the patient, witnessed by a nurse, and placed in the patient's chart. Additionally, other treatment options including modalities, medications, and physical therapy were reviewed with the patient. After review of previous anaesthesic history and IV conscious sedation the patient was deemed safe to proceed with today?s procedure with IV conscious sedation as ASA class II designation. Safety time-out was performed to confirm patient ID, procedure to be performed and site of procedure. IV sedation was accomplished with a combination of 2mg of Versed administered by the RN after DO order, titrated to patient comfort during the course of the procedure while the patient remained responsive to all verbal commands. In the prone position, following sterile prep and drape of the lumbar region, the L5/S1 translaminar space was identified fluoroscopically. The skin was anesthetized via a 25-gauge, 1.5-inch needle with 1% lidocaine solution. At this point, a 22-gauge short bevel spinal needle was atraumatically introduced and advanced under fluoroscopic guidance into the region of the L5/S1 translaminar space. Depth was confirmed on lateral view. Radiological data, including multiple fluoroscopic views of the lumbar spine, reveal a spinal needle at the L5/S1 translaminar space. Lateral views then show placement of the needle in the epidural space. Subsequent views show contrast material flowing superiorly and inferiorly in the epidural space. No vascular or intrathecal uptake is observed. At this point, using loss of resistance technique with saline and air, the epidural space was entered. This was confirmed following negative aspiration with injection of approximately 1.5cc of Isovue 200, showing excellent epidural flow without vascular or intrathecal uptake. At this point, 1 cc of 1% lidocai ne solution combined with 2cc or 10mg of dexamethasone and 6mg of betamethasone was injected without incident. The patent tolerated the procedure without signs of symptoms of complications prior to transfer to the recovery area for further monitoring. The patient was then transferred to the recovery area where they were observed for an appropriate period of time after the injection. The patient reported a VAS score of 6 prior to the procedure and a post-procedure VAS of 0. POST OP INSTRUCTIONS The patient was provided a Pain Log to continue to record their response to the target-specific procedure prior to follow-up visit with their referring physician. Additionally, specific post-injection care instructions and a contact number to our office were provided if concerns arise regarding possible complications associated with the procedure are suspected.
== END 2024-01-03 16:20 | disposition home or self-care (01) ==
PROVIDERS: Family Provider Family Medicine; PCP Family Medicine; Referring Provider Physical Medicine & Rehabilitation; Visit Provider Physical Medicine & Rehabilitation
DX: M51.17 Intervertebral disc disorders with radiculopathy, lumbosacral region (principal); M48.07 Spinal stenosis, lumbosacral region
CPT/HCPCS: 62323; 99152; J0702; J1100; J2250; J3490

== ENCOUNTER → 2024-01-09 14:23 | Outpatient (CLI) | payer BC, SELFPAY ==
--- NOTE | 2024-01-09 14:25 | DI.RAD.S_ITS ---
PROCEDURE: XR CERVICAL SPINE 4V OR 5V INDICATIONS: Cervicalgia TECHNIQUE: 3 views of the cervical spine were acquired. COMPARISON: None. FINDINGS: Bones: No fractures or dislocations to the T1 level. No suspicious bony lesions. Anterior fusion is present from C3 through C6. Hardware is intact without hardware fracture or periprosthetic lucency to suggest loosening. Alignment is stable. Multilevel uncovertebral arthropathy. Multilevel foraminal narrowing most prominent from C4-5 through C6-7 is present bilaterally. Soft tissues: Prevertebral soft tissues are normal in thickness. IMPRESSION: Postsurgical changes as well as bilateral foraminal narrowing. Dictated by: Sunita Larkin M.D. on 01/09/2024 at 17:37 Approved by: Sunita Larkin M.D. on 01/09/2024 at 17:38
== END ==
PROVIDERS: Family Provider Family Medicine; PCP Family Medicine; Referring Provider Family Medicine; Visit Provider Family Medicine
DX: M48.02 Spinal stenosis, cervical region (principal); M47.812 Spondylosis without myelopathy or radiculopathy, cervical region; M54.2 Cervicalgia; Z98.1 Arthrodesis status
CPT/HCPCS: 72050